=== PATIENT | male | born 1960 | race Caucasian/White ===

== ENCOUNTER 2021-03-29 01:56 | Outpatient (CLI) | payer BC, SELFPAY ==
--- NOTE | 2021-03-29 06:30 | DI.MRI_ITS ---
Exam(s) MR CERVICAL SPINE WO EXAM: MR CERVICAL SPINE WO CLINICAL HISTORY: Chronic pain,cervical dystonia, g24.3 TECHNIQUE: Multiplanar multisequence MRI of the cervical spine was performed without intravenous con trast. COMPARISON: No exams were available for comparison FINDINGS: CERVICOMEDULLARY JUNCTION: Intact with no evidence of cerebellar tonsillar ectopia. No obvious abnor mality of the odontoid process. No evidence of Chiari 1 malformation. The cervical curvature is cristhian ntained. CERVICAL SPINAL CORD: There is no abnormal signal in the cervical spinal cord and no evidence of foca l cord atrophy nor focal cord swelling. OSSEOUS:There are no cervical fractures evident. No significant osseous lesions in the cervical vert ebrae. INDIVIDUAL LEVELS: C2-3: No disc herniation nor central canal stenosis. No foraminal stenosis. No facet arthropathy. C3-4: No disc herniation nor central canal stenosis.No facet arthropathy. No foraminal stenosis. C4-5: No disc herniation nor central canal stenosis.No facet arthropathy. No foraminal stenosis C5-6: Normal disc height and signal. No disc herniation or central canal stenosis. No significant f acet arthropathy. No foraminal stenosis. C6-7: Normal disc height and signal. No disc herniation or central canal stenosis. No significant f acet arthropathy. No foraminal stenosis. C7-T1: No disc herniation nor central canal stenosis. No facet arthropathy.No foraminal stenosis. IMPRESSION: 1. Unremarkable MRI scan of the cervical spine 2. No evidence of disc herniation, central canal stenosis, or foraminal stenosis. 3. No abnormal intraosseous signal. 4. The normal cervical curvature is maintained. DATA REPOSITORY:
== END 2021-03-29 02:16 ==
PROVIDERS: PCP Nurse Practitioner Family; Visit Provider Nurse Practitioner Family
DX: G24.3 Spasmodic torticollis (principal)
CPT/HCPCS: 72141

== ENCOUNTER 2021-03-31 01:39 | Outpatient (CLI) | payer BC, SELFPAY ==
[2021-03-31 12:52] LABS: ALT 46 U/L (16-63); AST 21 U/L (15-37); Albumin 3.8 g/dL (3.4-5.0); Alkaline Phosphatase 74 U/L (46-116); Anion Gap 8.4 mmol/L (3-11); BUN 17 mg/dL (7-18); Bilirubin, Total 0.5 mg/dL (0.2-1.0); CO2 29.6 mmol/L (21.0-32.0); Calcium 8.9 mg/dL (8.5-10.1); Calculated LDL 159 mg/dL (<100); Chloride 105 mmol/L (98-107); Cholesterol 231 mg/dL (<200); Glucose 96 mg/dL (74-106); HDL Cholesterol 51 mg/dL (40-60); Potassium 4.7 mmol/L (3.5-5.1); Sodium 143 mmol/L (136-145); Total Protein 7.1 g/dL (6.4-8.2); Triglyceride 108 mg/dL (<150)
[2021-03-31 13:25] LABS: Hemoglobin A1C 5.3 % (<5.7)
== END 2021-03-31 01:40 | disposition home or self-care (01) ==
LOC: LOS 01:39
PROVIDERS: PCP Nurse Practitioner Family; Visit Provider Nurse Practitioner Family
DX: Z13.220 Encounter for screening for lipoid disorders (principal); Z13.1 Encounter for screening for diabetes mellitus; Z00.00 Encounter for general adult medical examination without abnormal findings
CPT/HCPCS: 36415; 80053; 80061; 83036

== ENCOUNTER 2021-08-11 08:15 | Outpatient (CLI) | payer BC, SELFPAY ==
--- NOTE | 2021-08-11 | DI.US_ITS ---
Exam(s) US PAIN CLINIC NEEDLE GUIDANCE EXAM: LT OCCIPITAL NEURALGIA,CERVICAL MUSCLE PAIN,SCAPULOTHORACIC BURSITIS,M54.81 COMPARISON: No exams were available for comparison TECHNIQUE: Ultrasound performed using standard protocol. FINDINGS: Ultrasound guidance was provided for trigger point injection. Radiologist not present. IMPRESSION: DATA REPOSITORY:
[2021-08-11 08:23] VITALS: BP 134/82; PULSE 64; RESP 18; TEMP 36.4; O2SAT 99
--- NOTE | 2021-08-11 09:10 | PDOC.PAIN_ITS ---
Pain Clinic Procedure Note Procedure Note Procedure Note: ULTRASOUND GUIDED left levator scapula and trapezius muscle trigger point INJECTIONS Pre-Procedural Evaluation: Humza Morse has been referred to the [facility] for an Ultrasound Guided left levator scapulae and trapezius muscle trigger point injection for a chief complaint of left neck pain. Dx: Muscle pain Pre-procedure Pain Score: 6/10 Patient was interviewed and the medical record reviewed. There were no medical, pharmacologic, radiographic, or other structural contraindications to preforming an ultrasound guided injection. Risks and expected side effects as well as potential benefits of the procedure were reviewed. The patient consent form was signed and witnessed. Standard time-out procedure was performed. The use of direct ultrasound visualization of the needle (rather than a non- guided injection) was required to increase patient safety by excluding inadvertent intramuscular, intratendinous, or intraneural needle placement and minimizing bleeding by avoiding osteochondral or vascular injury from the needle. Additionally, the increased accuracy of placement may increase clinical effectiveness and will allow higher diagnostic specificity when evaluating effec tiveness of this injection. Procedure Description: The patient was placed in the prone position and automated blood pressure cuff and pulse oximeter applied for monitoring during the procedure and recorded in the medical record. Pre-injection ultrasound scanning of the area of interest was performed using a linear transducer, identifying relevant anatomy, landmarks, and neurovascular structures allowing for optimal needle path. The site was then prepared in the usual sterile fashion, using thorough Chlorhexadine preparation of the skin and sterile draping. The same ultrasound transducer was then passed into the sterile field using sterile probe cover and sterile ultrasound gel. The injection target was again visualized. Skin and subcutaneous tissues were anesthetized with 3 mL of 1% Lidocaine. A 21 guage Pajunk Ultrasound needle 3.5 inch needle was placed under live ultrasound guidance, using an [id number] approach, to the target area. After visualization of the needle tip at the target area, 3 cc of Lidocaine (2%) was injected into the area. This was followed by 1cc of Dexamethasone (10 mg/cc). The needle was then flushed with 1 cc of 2% Lidocaine. All injectate was delivered after negative aspiration for blood. Numerous passes were made through the muscles. Ultrasound images were captured and stored for documentation purposes. Post-procedure VAS Pain Score: 5/10 Vital signs were stable throughout the procedure and were as recorded in the docflowsheet by the nursing staff. Follow up plans and appointments were discussed with the patient.Post procedure instruction was given as documented in nursing documentation and having met discharge criteria, they were discharged from the Pain Management Center. COMMENTS: He can have this procedure up to 3 times per 12 months if it is helpful. Lobo Bryant DO, MPH [facility]-Pain Management [facility]-Center for Pain Management
[2021-08-11 09:17] VITALS: PULSE 68; O2SAT 99
[2021-08-11] MEDS: Lidocaine 2% Pres-Free 5 ML VIAL IJ (09:21)
[2021-08-11] MEDS: Dexamethasone Sod. Phos./Pres-Free 10 MG/ML VIAL IJ (09:21)
== END 2021-08-11 08:16 | disposition home or self-care (01) ==
LOC: PC 08:15
PROVIDERS: PCP Nurse Practitioner Family; Visit Provider Preventive Medicine Occupational Medicine
DX: M54.2 Cervicalgia (principal)
CPT/HCPCS: 20552; 76942

== ENCOUNTER → 2021-10-06 13:54 | Outpatient (CLI) | payer BC, SELFPAY ==
--- NOTE | 2021-10-06 12:15 | DI.RAD_ITS ---
Exam(s) XR LUMBAR SPINE COMP W FLEX/EX EXAM: XR LUMBAR SPINE COMP W FLEX/EX CLINICAL HISTORY: M54.50 - [facility] low back pain - neurologically intact. TECHNIQUE: 2D digital imaging was performed. Seven views. COMPARISON: No exams were available for comparison FINDINGS: Flexion and extension lateral views were performed in addition to the neutral lateral view. There is no subluxation with flexion or extension. The vertebral bodies are well maintained in height. There are small endplate osteophytes throughout. Limbus vertebra is noted at L4. There is mild narr owing of the L4-5 and L5-S1 disc spaces. No spondylolysis, spondylolisthesis or scoliosis. Facet de generative changes at L4-5 and L5-S1. IMPRESSION: Degenerative disc changes and facet degenerative changes greatest at L4-5 and L5-S1. DATA REPOSITORY: RADIATION DOSE DELIVERED:
== END ==
PROVIDERS: PCP Nurse Practitioner Family; Visit Provider Preventive Medicine Occupational Medicine
DX: M54.59 Other low back pain (principal); M51.37 Other intervertebral disc degeneration, lumbosacral region; M47.817 Spondylosis without myelopathy or radiculopathy, lumbosacral region
CPT/HCPCS: 72114

== ENCOUNTER 2022-01-26 12:29 | Outpatient (CLI) | payer BC, SELFPAY ==
--- NOTE | 2022-01-26 06:00 | DI.RAD_ITS ---
Exam(s) XR PAIN CLINIC LUMBAR SP 2V EXAM: XR PAIN CLINIC LUMBAR SP 2V CLINICAL HISTORY: Dx: Lumbar Spondylosis TECHNIQUE: 2D and realtime digital imaging was performed. Radiologist not present. CONTRAST MATERIAL: None. COMPARISON: No exams were available for comparison FINDINGS: Fluoroscopy was provided for pain management therapy. Please refer to procedure report or details. Cumulative dose: Ka,r=not given mGy IMPRESSION: RADIATION DOSE DELIVERED:
[2022-01-26 12:39] VITALS: BP 133/90; PULSE 68; RESP 20; TEMP 36.4; O2SAT 97
--- NOTE | 2022-01-26 13:10 | PDOC.PAIN_ITS ---
Pain Clinic Procedure Note Procedure Note Procedure Note: Lumbar/Sacral Medial Branch Blocks Humza Morse has been referred to the Pain Management Center for lumbar/sacral medial branch blocks. COMMENTS: Previously evaluated in our office. Pre-procedure pain VAS was 6/10. Dx: Lumbosacral spondylosis without myelopathy Patient was interviewed and the medical record reviewed. There were no medical, pharmacologic, radiographic or other structural contraindications to attempting fluoroscopically guided local anesthetic lumbar/sacral medial branch blocks. Risks and expected side effects as well as potential benefit of the procedure were reviewed and voiced concerns addressed. The printed consent form was signed and witnessed. Standard time-out procedure was performed. Patient was placed in the prone position on the fluoroscopy table and automated blood pressure cuff and pulse oximeter applied. The skin entry points for approaching the anatomic target points of the segmental medial branches of bilateral L3, L4, and L5DR were identified with anfluoroscopy and marked. Following thorough Chlorhexadine preparation of the skin and draping and 1% lidocaine infiltration of the skin entry points and subcutaneous tissues, a 22 gauge spinal needle was placed under fluoroscopic guidance down on to the target point for each respective segmental medial branch.Position was confirmed in A/P, oblique and lateral views with 0.25ml of omnipaque 240. At this point I injected 0.5ml of 0.5% Bupivacaine at each segmental sensory nerve. Vital signs were stable throughout the procedure and were as recorded in the docflowsheet by the nursing staff. Follow up plans and appointments were discussed and was instructed to keep careful note of how the usual pain was modified by these injections. Specifically was asked to keep a pain diary for the next 24 hours using a numeric pain scale of 0-10 and report these results at the follow-up visit. Post procedure instruction was given as documented in the nursing documentation and having met discharge criteria. Patient was discharged from the Pain Management Center. Based on the medial branches blocked today, if the patient has adequate relief and we are able to proceed to radiofrequency ablation, the treatment should result in the denervation of the bilateral L4-L5 and L5-S1 FACET JOINTS. We would expect to denervate a total of 4 facets during the radiofrequency a blation. COMMENTS: Post-procedure pain VAS was 4/10. Lobo Bryant DO, MPH [facility]-Pain Management [facility]-Center for Pain Management CC: Ric Gordon NP
[2022-01-26 13:38] VITALS: BP 154/91; PULSE 82; RESP 19; O2SAT 100
[2022-01-26] MEDS: Omnipaque 240 MG/ML 50 ML BTL IJ (13:40)
[2022-01-26] MEDS: Bupivacaine 0.5% Pres-Free 10 ML VIAL IJ (13:40)
== END 2022-01-26 12:30 | disposition home or self-care (01) ==
LOC: PC 12:29
PROVIDERS: PCP Nurse Practitioner Family; Visit Provider Preventive Medicine Occupational Medicine
DX: M47.817 Spondylosis without myelopathy or radiculopathy, lumbosacral region (principal)
CPT/HCPCS: 64493; 64494; 72100; Q9967

== ENCOUNTER 2022-04-20 15:38 | Outpatient (CLI) | payer BC, SELFPAY ==
--- NOTE | 2022-04-20 15:30 | RT.EKG_ITS ---
APPROVED REPORT Exam: Resting ECG Reason for Exam: lightheaded, dizziness Patient Location: O HR:69 bpm ECG Measurements Heart Rate 69 AXIS MD 166 P 58 QRSd 89 QRS 73 QT 375 T 47 QTc 402 Conclusion Sinus rhythm...normal P axis, V-rate 50- 99 Poor R wave progression
== END 2022-04-20 15:39 | disposition home or self-care (01) ==
LOC: DI.CM 15:39
PROVIDERS: PCP Nurse Practitioner Family; Visit Provider Physician Assistant
DX: R42 Dizziness and giddiness (principal)
CPT/HCPCS: 93010

== ENCOUNTER 2022-04-20 16:09 | Emergency (ER) | payer BC, SELFPAY ==
[2022-04-20] VITALS (48 sets, daily range): BP systolic 120–163; BP diastolic 62–88; PULSE 52–85; RESP 6–25; TEMP 36.4; O2SAT 96–100
--- NOTE | 2022-04-20 16:15 | RT.EKG_ITS ---
APPROVED REPORT Exam: Resting ECG Reason for Exam: dizzy Patient Location: E HR:66 bpm ECG Measurements Heart Rate 66 AXIS WA 168 P 61 QRSd 82 QRS 57 QT 375 T 40 QTc 394 Conclusion Sinus rhythm. Probable left atrial enlargement. Anteroseptal Q >30mS, dimin R, V1-V2
--- NOTE | 2022-04-20 16:30 | DI.RAD_ITS ---
Exam(s) XR CHEST 2V PA LATERAL EXAM: XR CHEST 2V PA LATERAL CLINICAL HISTORY: lightheaded TECHNIQUE: 2D digital imaging was performed. COMPARISON: No exams were available for comparison FINDINGS: The heart is not enlarged. The lungs are clear and well expanded. No pleural effusion seen. Mediastin al contours appear intact. IMPRESSION: Normal chest. RADIATION DOSE DELIVERED: Total DLP
--- NOTE | 2022-04-20 16:35 | ED.GENADUL_ITS ---
Discharge Plan Disposition Patient Disposition: Home Condition: Improving Discharge Details Clinical Impression: Acute dehydration Primary Care Provider: Ric Gordon ED Provider: Jimenez Brown Home Meds and New Rx's Prescriptions: Continued omega-3 fatty acids [Fish Oil Concentrate] 1,000 mg capsule 1,000 mg PO DAILY multivitamin [Daily Multi-Vitamin] Tablet 1 tab PO DAILY Discharge Instructions Instructions: Dehydration (ED) Additional Instructions: Your work-up in the emergency department today included chest x-ray, EKG, laboratories including cardiac troponin. Please consider reducing your morning use of caffeinated tea. Small, frequent sips of fluids to maintain hydration. Follow-up in clinic for routine care. Discharge Data Discharge Date/Time-TO BE ENTERED AT DEPARTURE: 04/20/22 20:39 Medical Decision Making 62-year-old male with 4 days of lightheadedness that is primarily positional. Denies a vertiginous component. He has not had syncope. He denies chest pain or shortness of breath. He was initially seen at urgent care and referred to the ER. His review of systems will reveal a new daily drinking of caffeinated tea in the morning and decreased water intake. Says has had mild weakness but is otherwise felt well. Patient is well-appearing. His orthostatic vital signs are positive with an approximately 20 point rise in heart rate. IV access established, patient given fluid bolus. Labs reveal a normal CBC, chemistries with BUN elevated at 21. Creatinine as 1.2. Troponin negative, TSH within normal limits. Chest x-ray is unremarkable. Following fluid resuscitation, patient is improved. Does appear to be lifestyle related dehydration. Discussed with him ongoing surveillance for recurrence of symptoms at home. He is stable and improved at this time. Sign Out No HPI General Mode of arrival: ambulatory . Date/Time Provider Initiated Documentation: 04/20/22 16:12 . Limitations to Documentation: no limitations . Information obtained by: patient . History of Present Illness 62 year old M presents to the emergency department with the chief complaint of Lightheaded for 4 days, positional, described as moderate, and is localized to the head. Patient reports no radiation. Patient started experiencing this day(s) and it has been intermittent. Rest improves symptom(s), Other factors that worsen symptoms (Movement provoked at times) . Patient notes loss of appetite and malaise; denies fever/chills, headaches and syncope. Patient did receive the following treatments prior to arrival, none Related Data Home Medications Medication Instructions Recorded Confirmed multivitamin (Daily Multi-Vitamin 1 tab PO DAILY 02/26/21 04/20/22 tablet) omega-3 fatty acids 1,000 mg 1,000 mg PO DAILY 02/26/21 04/20/22 capsule (Fish Oil Concentrate) Allergies Allergy/AdvReac Type Severity Reaction Status Date / Time No Known Allergies Allergy Verified 04/20/22 14:54 General Stated Complaint: Dizzy/Sync ABIGAIL: 3 Review of Systems Narrative: No fever, chills, palpitations. Denies chest pain or shortness of breath. No lower extremity pain or swelling, no recent travel or known sick contacts. Denies dark or bloody stools. 8 systems were reviewed and otherwise negative PFSH All Active Problems (Updated 04/20/22 @ 18:58 by Jimenez Brown MD) Acute dehydration (Acute) Muscle pain, cervical (Acute) Low back pain (Acute) Scapulothoracic bursitis of left shoulder (Acute) Dr. Bryant at pain medicine Muscle pain, cervical (Acute) Occipital neuralgia of left side (Acute) Cervical dystonia (Acute) Elevated blood pressure reading (Acute) Degenerative disk disease (Acute) Lumbar region Medical History Postsurgical retinal scar of both eyes Surgical History History of lumbar laminectomy Hx of tonsillectomy S/P cataract surgery S/P MCL repair Family History Mother , 87 Breast cancer Liver cancer Father Throat cancer Diabetes Heart disease Sister No problems noted. Sister No problems noted. Sister No problems noted. Brother No problems noted. Maternal Grandfather , 92 No problems noted. Maternal Grandmother , 92 No problems noted. Social History Smoking/Tobacco Use Status: Never Second Hand Exposure: Yes Smoking risk assessment performed?: Yes Alcohol Intake: current Alcohol Intake frequency: a few times a week Alcohol type: beer and wine Drug use: Rarely Substance use type: marijuana Caregiver/Support person: No Household members: spouse Housing: house Communication Needs: None Do you need help understanding health information?: Rarely Pets and animals: No Sexually active: No Do you think of yourself as: straight/heterosexual Current gender identity: male What is your relationship status?: How often do you talk on the phone with friends or family?: twice per week How often do you get together with friends or relatives?: three or more times per week How often do you attend buddhist or mormon services?: decline to answer Panel score (0-1 are the most socially isolated patients): 2 What type of physical activity do you participate in: walking and bicycling Duration: 60-90 minutes/day Frequency: 1-2 times per week Melanie/Sabianist: No preference Special melanie needs: No Seatbelt use: always Drive intox or ride w/intox roll off driver: No Do you feel safe at home: Yes Do you feel safe in your relationship?: Yes Exam Narrative Exam Narrative: GEN: awake, alert, oriented 3. Pleasant, well groomed, interactive. HEAD: Normocephalic, atraumatic ENT: Mucous membranes moist, oropharynx unremarkable, External ear exam unremarkable EYES: PERRL, EOMI NECK: Full ROM, no JORDANA, no menigismus CHEST/RESP: Nontender, clear to auscultation bilateral, no wheeze/rhonchi/rales CARDIOVASCULAR: RRR, no murmur, rub oly. 2+ Rad pulse bilateral ABDOMEN: Soft, nontender, no mass. +Bowel sounds EXT: Full ROM, no edema, no rash Neuro: Cranial nerves II through XII intact, Romberg negative, grossly normal neurologic exam, conversant, interactive. Psych: Speech fluent, thoughts congruent, affect normal Course Vital Signs Vital signs: Vital Signs Temperature 36.4 C L 04/20/22 16:15 Pulse 68 04/20/22 16:15 Blood Pressure 151/84 H 04/20/22 16:15 Pulse Oximetry 98 04/20/22 16:15 Temperature 36.4 C L 04/20/22 16:15 Pulse 68 04/20/22 16:15 Blood Pressure 151/84 H 04/20/22 16:15 Pulse Oximetry 98 04/20/22 16:15 Oxygen Delivery Method Room Air 04/20/22 16:15 Oxygen Flow Rate 0 04/20/22 16:15 Pain Level 0 04/20/22 16:15
[2022-04-20 16:58] LABS: Abs Immature Grans 0.01 10^3/uL (0.0-0.06); Absolute Basophil Count 0.02 10^3/uL (0.0-0.2); Absolute Eosinophil Count 0.08 10^3/uL (0.0-0.7); Absolute Lymphocyte Count 1.63 10^3/uL (1.2-3.4); Absolute Monocyte Count 0.69 10^3/uL (0.1-0.8); Absolute Neutrophil Count 3.84 10^3/uL (1.2-6.7); Basophils % 0.3; Eosinophils % 1.3; HCT 49.3 % (40.0-50.0); HGB 16.6 g/dL (13.5-17.5); Immature Grans % 0.2; MCH 29.7 pg (27.0-33.0); MCHC 33.7 % (32.0-36.0); MCV 88 fL (80-95); Neutrophils % 61.2; Platelet Count 230 10^3/uL (130-400); RBC 5.59 10^6/uL (4.36-5.78); RDW 11.7 % (11.8-14.1); RDW-SD 37.2 fL; WBC 6.27 10^3/uL (4.4-10.8)
--- NOTE | 2022-04-20 17:21 | DI.VRAD_ITS ---
PROCEDURE INFORMATION: Exam: XR Chest Exam date and time: 04/20/2022 5:01 PM Age: 62 years old Clinical indication: Other: Lightheaded TECHNIQUE: Imaging protocol: Radiologic exam of the chest. Views: 2 views. COMPARISON: CR XR LUMBAR SPINE COMP W FLEX/EX 10/06/2021 12:31 PM FINDINGS: Lungs: Unremarkable. No consolidation. Pleural spaces: Unremarkable. No pleural effusion. No pneumothorax. Heart/Mediastinum: Unremarkable. No cardiomegaly. Bones/joints: Degenerative change of the spine. IMPRESSION: No acute findings. Dictated and Authenticated by: Cristina Klein MD. Ordering:ROSALINDA Gaona MD
[2022-04-20 17:24] LABS: ALT 35 U/L (16-63); AST 17 U/L (15-37); Albumin 3.6 g/dL (3.4-5.0); Alkaline Phosphatase 75 U/L (46-116); Anion Gap 6.9 mmol/L (3-11); BUN 21 mg/dL (7-18); Bilirubin, Total 0.4 mg/dL (0.2-1.0); CO2 29.1 mmol/L (21.0-32.0); CREATININE 1.2 mg/dL (0.70-1.30); Calcium 8.7 mg/dL (8.5-10.1); Chloride 104 mmol/L (98-107); Glucose 92 mg/dL (74-106); Magnesium 2.3 mg/dL (1.8-2.4); Potassium 3.9 mmol/L (3.5-5.1); Sodium 140 mmol/L (136-145); TSH 2.08 uIU/mL (0.36-3.74); Total Protein 7.2 g/dL (6.4-8.2); Troponin I < 50 ng/L (<or=60)
[2022-04-20 18:10] LABS: Bilirubin Negative (Negative); Blood Negative (Negative); Clarity Clear (Clear); Glucose Negative (Negative); Ketones Negative (Negative); Leukocyte Esterase Negative (Negative); Nitrite Negative (Negative); Urobilinogen 0.2 EU/dL (Up TO 0.2)
[2022-04-20] MEDS: Normal Saline 1,000 ML 1000 ML IV (18:33)
== END 2022-04-20 20:39 | disposition home or self-care (01) ==
PROVIDERS: Emergency Provider Emergency Medicine; PCP Nurse Practitioner Family
DX: E86.0 Dehydration (principal); Z77.22 Contact with and (suspected) exposure to environmental tobacco smoke (acute) (chronic)
CPT/HCPCS: 36415; 80053; 93005; 96360; 96361; 99284; 71046; 81003; 83735; 84443; 84484; 85025; 93010; 99285

== ENCOUNTER → 2022-05-13 13:38 | Outpatient (CLI) | payer BC, SELFPAY ==
--- NOTE | 2022-05-13 11:12 | DI.US_ITS ---
APPROVED REPORT EXAM: Comprehensive 2D, Doppler, and color-flow Echocardiogram Patient Location: Out-Patient [facility] Operator: Lizbet Patel RDCS (AE) Indications: Probable left atrial enlargement, Cardiomegaly Other Information Study Quality: Adequate Conclusion Normal left ventricular wall thickness and chamber size. Estimated ejection fraction is 60%. Wall m otion is normal Normal right ventricular size and systolic function The atria are normal in size There is no structural or hemodynamically significant valvular disease Normal estimated right ventricular systolic pressure 27 mmHg Wall motion Left Ventricle The left ventricle is normal size. The left ventricular systolic function is normal. The left ventric ular ejection fraction is within the normal range. There is normal left ventricular wall thickness. T here is normal LV segmental wall motion. There is no ventricular septal defect visualized. LVEF is 60 %. Right Ventricle The right ventricle is normal size. The right ventricular systolic function is normal. The RVSP is 26 .9_ mmHg. Atria The left atrium size is normal. The right atrium size is normal. The interatrial septum is intact wit h no evidence for an atrial septal defect. Aortic Valve The aortic valve is normal in structure. Aortic valve is trileaflet. There is no aortic valvular sten osis. Trace to mild aortic regurgitation. Mitral Valve The mitral valve is normal in structure. No evidence of mitral valve stenosis. Trace mitral regurgita tion. Tricuspid Valve The tricuspid valve is normal in structure. There is no tricuspid valve stenosis. Trace to mild tricu spid regurgitation. Pulmonic Valve The pulmonary valve is normal in structure. There is no pulmonic valvular stenosis. Trace pulmonic re gurgitation. Great Vessels The aortic root is normal in size. The ascending aorta is normal in size. Aortic arch is normal in ca liber. IVC is normal in size and collapses >50% with inspiration. Pericardium There is no pericardial effusion. 2D Dimensions IVSD d PLAX 1.01 cm M: 0.6-1.2 LV Vol A2C d MOD 119.9 mL LVPW d PLAX 1.00 cm M: 0.6 - 1.2 LV Vol A4C d MOD 117.4 mL LVID d PLAX 4.72 cm M: 4.2 - 5.8 LA vol/ BSA A2C s A-L 22.6 mL/m2 LVDs 3.25 cm M: 2.5 - 4.0 LA vol/ BSA A4C s A-L 13.7 mL/m2 Ao Root d 3.30 cm M: 3.1 - 3.7 LA Vol/ BSA Biplane s A-L 18.1 mL/m2 RA Area A4C 12.52 cm2 LA Area A4C s MOD 12.86 cm2 RA Vol/ BSA A4C s A-L 14.6 mL/m2 LA Area A2C s MOD 16.95 cm2 Ao Asc Diam d 3.24 cm M: 2.6 - 3.4 LV EF A4C MOD 60.0 % LV EF Teichholz 58.0 % LV EF A2C MOD 60.5 % LVEF (Gutierrez's) 59.83 % M: 52 - 72 LV EF Biplane MOD 59.8 % LV Volume 88.77 mL M: 62 - 150 SV 72.73 mL LV Volume Index 40.90 mL/m2 M: 34 - 74 SV Index 33.50 mL/m2 LV Vol Biplane MOD 121.6 mL FS 30.50 % M-Mode TAPSE 2.70 cm (M/F) >1.7 LV Diastology MV E' medial 0.081 (>0.07 m/s) E/A Ratio 1.0 LV E/e MED 5.95 (<14) MV E Vmax 0.48 (0.4-1.3 m/s) MV E' lateral 0.084 (>0.1 m/s) MV A Vmax 0.50 (0.4-1.3 m/s) LV E/e LAT 5.70 (<14) MV E/A Ratio 0.92 MV E/E' medial 5.98 MV E/E' lateral 5.72 Aortic Valve LVOT Area 3.18 cm2 AoV Area Vmax 2.80 cm2 LVOT Vmax 0.96 m/s AoV Area/ BSA (Vmax) 1.29 cm2/m2 LVOT [place]. 0.63 m/s WOJCIECH [place]. 2.69 cm2 LVOT Peak Grad 3.7 mmHg WOJCIECH [place]. Index 1.24 cm2/m2 LVOT Mean Grad 1.9 mmHg LVOT VTI 0.197 m LVOT Diam s 2.00 cm AoV Vmax 1.08 m/s Velocity Ratio 0.89 AoV [place]. 0.74 m/s AoV Peak Grad 4.7 mmHg LVOT SV 62.43 mL AoV Mean Grad 2.5 mmHg AoV VTI 0.215 m AoV Area VTI 2.90 cm2 AoV Area/ BSA (VTI) 1.34 cm/m2 Mitral Valve MV DT 325 (160-240 msec) MV PHT 94 msec MV Area PHT 2.34 cm2 MV VTI 0.169 m MV Area VTI 3.70 (4.0-6.0 cm2) Pulmonary Valve PV Vmax 0.90 (0.5-1.5 m/s) RVOT Peak Gr. 1.76 mmHg PV Peak Grad 3.2 mmHg RVOT Mean Gr. 1.00 mmHg PV Mean Grad 2.1 mmHg RVOT VTI 0.152 m PV VTI 0.207 m RVOT Vmax 0.66 m/s Tricuspid Valve TR Peak Grad 23.9 mmHg TR Vmax 2.44 m/s RA Pressure 3.00 mmHg RVSP (TR) 26.9 mmHg
== END ==
PROVIDERS: PCP Nurse Practitioner Family; Visit Provider Nurse Practitioner Family
DX: I51.7 Cardiomegaly (principal)
CPT/HCPCS: 93306

== ENCOUNTER 2022-08-02 02:40 | Outpatient (CLI) | payer BC, SELFPAY ==
--- NOTE | 2022-08-02 07:00 | DI.RAD_ITS ---
Exam(s) XR SCAPULA LT EXAM: XR SCAPULA LT CLINICAL HISTORY: continued/worsening pain SCAPULOTHORACIC BURSITIS LT SHOULDER,M75.52. TECHNIQUE: 2D digital imaging was performed. COMPARISON: No exams were available for comparison FINDINGS: Two views: No evidence of scapular fracture. No osseous lesions noted. No obvious findings in the glenohumeral joint and subacromial space nor in the AC joint and ipsilateral left clavicle. No abnormal soft tis jose r calcifications. IMPRESSION: No significant osseous findings on these two views of the scapula. DATA REPOSITORY: RADIATION DOSE DELIVERED:
== END 2022-08-02 03:00 ==
LOC: DI 02:43
PROVIDERS: PCP Nurse Practitioner Family; Visit Provider Nurse Practitioner Family
DX: M75.52 Bursitis of left shoulder (principal); M25.512 Pain in left shoulder
CPT/HCPCS: 73010

== ENCOUNTER 2022-10-05 01:15 | Outpatient (CLI) | payer BC, SELFPAY ==
--- NOTE | 2022-10-05 06:30 | DI.MRI_ITS ---
Exam(s) MR UPPER JOINT LT WO EXAM: MR UPPER JOINT LT WO CLINICAL HISTORY: Failing PT,bursitis lt shoulder,neck pain,m54.2,m75.52. TECHNIQUE: Multiplanar multisequence MRI was performed. COMPARISON: Plain films August 18 FINDINGS: BONES: There is no fracture or contusion pattern. JOINTS:The acromioclavicular joint is normal. The glenohumeral joint is normal. TENDONS: Supraspinatus: Unremarkable. Infraspinatus: Unremarkable. Subscapularis: Mild thickening and edema. No focal tear visible. Teres Minor: Unremarkable. Biceps and Pope: Unremarkable. MUSCLES: Unremarkable. GLENOID LABRUM: Labrum not evaluated due to lack of intra-articular contrast and lack of joint effusi on. There is a question of tear versus degenerative change involving the infero posterior labrum. T here is a small adjacent labral cyst. Additional tiny cysts seen adjacent to the anteroinferior la ngoc. SOFT TISSUES: Unremarkable. OTHER: Subacromial and subdeltoid bursae shows minimal fluid which could indicate bursitis. . IMPRESSION: Small amount of fluid in the subacromial subdeltoid bursa could indicate bursitis. Subscapularis tendinosis. Small labral cysts seen adjacent to the the anterior and posterior aspects of the inferior labrum. F indings could be associated with degeneration versus tear. DATA REPOSITORY:
--- NOTE | 2022-10-05 08:15 | DI.MRI_ITS ---
Exam(s) MR LUMBAR SPINE WO EXAM: MR LUMBAR SPINE WO CLINICAL HISTORY: Worsening low back pain, M54.50. TECHNIQUE: Multiplanar multisequence MRI of the Lumbar spine was performed. COMPARISON: CR XR LUMBAR SPINE COMP W FLEX/EX from 10/06/2021 CR XR SCAPULA LT from 08/02/2022 FINDINGS: Bones: The last intervertebral disc space is designated the L5/S1 level for the numbering purpose of this examination. The vertebral body heights are well maintained. Alignment is satisfactory. Degen erative signal changes in the endplates at the L2-3 level. Small endplate osteophytes throughout. Cord: The conus tip ends at the T12 level. It is of normal size and signal intensity. T12-L1: No disc herniations or bulges are present. No central spinal canal or neural foraminal stenos is. L1-2: No disc herniations or bulges are present. Facet degenerative changes and ligamentous hypertrop hy contribute to mild narrowing of the AP dimension of the central canal. L2-3: Mild loss of disc hei ght. No disc herniations or bulges are present. No central spinal canal or neural foraminal stenosis . L3-4: Laminectomy defect on the right. No disc herniations or bulges are present. No central spinal canal or neural foraminal stenosis. L4-5: Laminectomy defect on the right. Tiny disc protrusion at the right lateral recess. Appears to impinge on nerve roots. No central spinal canal or neural foraminal stenosis. L5-S1: No disc herniations or bulges are present. No central spinal canal or neural foraminal stenosi s. The visualized SI joints and sacrum are well maintained. Soft tissues: The paraspinal soft tissues are unremarkable. IMPRESSION: Tiny right-sided disc protrusion at L4-5 with apparent nerve root impingement. Slight central canal stenosis at 1-2. DATA REPOSITORY:
== END 2022-10-05 01:35 ==
PROVIDERS: PCP Nurse Practitioner Family; Visit Provider Nurse Practitioner Family
DX: M48.04 Spinal stenosis, thoracic region (principal); M75.52 Bursitis of left shoulder; M54.2 Cervicalgia
CPT/HCPCS: 72148; 73221

== ENCOUNTER → 2023-04-07 03:06 | Outpatient (CLI) | payer BC, SELFPAY ==
--- NOTE | 2023-04-07 07:30 | DI.MRI_ITS ---
Exam(s) MR UPPER EXTREMITY LT WO CLINICAL HISTORY: nontraumatic left shoulder pain,scapulothoracic bursitis, m75.52. TECHNIQUE: Multiplanar multisequence MRI Examination was performed. CONTRAST MATERIAL: Noncontrast COMPARISON: MRI shoulder 05 Oct 2022 FINDINGS: Bones: There is edema seen on the axial and sagittal sequences adjacent to the 1st and 2nd ribs. There also appears to be edema within the 1st rib. No focal collection. The thoracic spine appears normal as visualized. The cord signal appears normal. None no abnormal fluid collections are identified adjac ent to the scapula. Cyst adjacent to the posterior labrum. There is a small amount of fluid in the subcoracoid bursa. IMPRESSION: No evidence of scapulothoracic bursitis. Edema seen in and adjacent to left 1st rib. DATA REPOSITORY:
== END ==
PROVIDERS: PCP Nurse Practitioner Family; Visit Provider Student in an Organized Health Care Education/Training Program
DX: M75.52 Bursitis of left shoulder (principal); M25.512 Pain in left shoulder
CPT/HCPCS: 73218

== ENCOUNTER 2023-10-09 04:56 | Outpatient (CLI) | payer BC, SELFPAY ==
[2023-10-09 12:21] LABS: HCT 50.2 % (40.0-50.0); HGB 16.5 g/dL (13.5-17.5); MCH 29.7 pg (27.0-33.0); MCHC 32.9 % (32.0-36.0); MCV 91 fL (80-95); MPV 10.5 fL (8.0-11.0); Platelet Count 229 10^3/uL (130-400); RBC 5.55 10^6/uL (4.36-5.78); RDW 11.9 % (11.8-14.1); RDW-SD 39.5 fL; WBC 3.84 10^3/uL (4.4-10.8)
[2023-10-09 12:53] LABS: ALT 37 U/L (16-63); AST 20 U/L (15-37); Albumin 3.8 g/dL (3.4-5.0); Alkaline Phosphatase 71 U/L (46-116); Anion Gap 6.7 mmol/L (3-11); BUN 17 mg/dL (7-18); Bilirubin, Total 0.8 mg/dL (0.2-1.0); CO2 29.3 mmol/L (21.0-32.0); CREATININE 1.1 mg/dL (0.70-1.30); Calcium 8.9 mg/dL (8.5-10.1); Calculated LDL 131 mg/dL (<100); Chloride 106 mmol/L (98-107); Cholesterol 199 mg/dL (<200); Glucose 102 mg/dL (74-106); HDL Cholesterol 53 mg/dL (40-60); Hemoglobin A1C 5.5 % (<5.7); Potassium 4.5 mmol/L (3.5-5.1); Sodium 142 mmol/L (136-145); Total Protein 7.2 g/dL (6.4-8.2); Triglyceride 78 mg/dL (<150)
[2023-10-09 18:34] LABS: PSA, Screening 5.7 ng/mL (<=4.5)
== END 2023-10-09 04:57 | disposition home or self-care (01) ==
LOC: LOS 04:56
PROVIDERS: PCP Nurse Practitioner Family; Visit Provider Nurse Practitioner Family
DX: Z00.00 Encounter for general adult medical examination without abnormal findings (principal); Z13.228 Encounter for screening for other metabolic disorders; Z13.220 Encounter for screening for lipoid disorders; Z13.1 Encounter for screening for diabetes mellitus; Z12.5 Encounter for screening for malignant neoplasm of prostate; Z13.0 Encounter for screening for diseases of the blood and blood-forming organs and certain disorders involving the immune mechanism
CPT/HCPCS: 36415; 80053; 80061; 84153; 85027; 83036

== ENCOUNTER 2024-01-19 08:11 | Day surgery (SDC) | payer BC, SELFPAY ==
--- NOTE | 2024-01-18 22:58 | COLE_ITS ---
Date of service: 01/19/24 Time of Service: 10:04 Colonoscopy Report Date of procedure: 01/19/24 Pre-op diagnosis general: CRC screening Post-op diagnosis procedure note: same Surgeon: Nishi Gallardo Anesthesia Type: General:No Airway Estimated blood loss (mL): 0 Complications: None Disposition: same day Prep: Miralax/Dulcolax Retraction Time: 8 Procedure Description: After informed consent was obtained, explaining risks of the procedure, includ ing but not limits to: bleeding, infections, complications of anesthesia, perforations (which may require antibiotics and /or surgery and stay in the hospital), and abdominal pain/cramping. The patient was taken to the procedure room and placed in a left decubitous position. Monitors were applied and a time out was done. The patients name, date of , procedure, allergies to medications and metal in their body was reviewed. The patient was then sedated. Once sedated and comfortable a rectal exam was done. External exam was normal. Internal exam revealed a normal sphincter tone and no palpable masses. The prostate no palpable masses The previously lubricated Olympus scope was then introduced (see RN notes for scope number) and retrofelexed. internal hemorrhoidal tags were identified. The scope was then advanced to the cecum without difficulty. The TI and appendiceal orifice were identified. The scope was then slowly retracted over 8 minutes back into the rectum. Polyps: No. Diverticula: No. The mucosa is pink and healthy w/ a normal vascular pattern. The scope was removed, and the patient was woken up and taken back to Same day surgery in stable condition. The patient tolerated the procedure well and there were no immediate complications. Follow up: The patient should follow up in 10 years, unless they develop changes in bowel habits or other new gastrointestinal complaints. [place] Bowel Prep [place] Bowel Prep Right Colon: 3 Left Colon: 3 Transverse Colon: 3 Total Score: 9
--- NOTE | 2024-01-18 22:59 | PDOC.DSDIS_ITS ---
Date of service: 01/19/24 Time of Service: 10:06 Discharge Plan Disposition Patient Disposition: Home Condition: Good Discharge Details Reason For Visit: colon scope Attending Provider: Nishi Gallardo Primary Care Provider: Ric Gordon Home Meds and New Rx's Prescriptions: Continued omega-3 fatty acids [Fish Oil Concentrate] 1,000 mg capsule 1,000 mg PO DAILY multivitamin [Daily Multi-Vitamin] Tablet 1 tab PO DAILY Discontinued bisacodyl [Dulcolax (bisacodyl)] 5 mg tablet,delayed release (DR/EC) 5 mg PO ONCE Qty: 4 0RF Rx Instructions: Take per colonoscopy instructions provided by ordering providers office polyethylene glycol 3350 17 gram/dose powder 17 g PO ONCE Qty: 238 0RF Rx Instructions: Take per colonoscopy instructions provided by ordering providers office Discharge Instructions Additional Instructions: DSU Colonoscopy Post- Op Instructions Instructions for Everyone who is given Anesthesia: For your safety, please do the following for the next twenty-four (24) hours: *Do Not operate a motor vehicle (car, truck, motorcycle, etc.) *Do Not drink alcoholic beverages or use any recreational drugs for the first 24 hours or while taking pain medications. The medications in your body may have a reaction that can be dangerous. *Do Not make any important decisions or sign any important papers. Findings:normal Follow up: repeat in 10 yrs time 1. No lifting over 20 pounds or strenuous activity for the first 24 hours after your procedure. After 24 hours there are no restrictions on your activity but you may feel fatigued for a few days. 2. After you arrive home you may have a light meal and return to your normal diet as you can tolerate it without feeling sick to your stomach. 3. You may have a bloated, gaseous feeling in your belly (abdomen) after a colonoscopy. Passing gas and belching will help. Walking or lying down on your left side with your knees flexed may relieve the discomfort. Call the office at [phone] (Office) or [phone] (Hospital) right away if you notice any of the following: a.Vomiting of blood or ?coffee ground stools?. b.Rectal bleeding 1Tbsp, blood clots or continuous bleeding. c.Severe belly (abdominal) pain. d.A hard distended belly (abdomen) and an inability to pass gas. 4. Please don?t expect to have a normal BM (bowel movement) for 2-3 days after your procedure. 5. If there are questions regarding the findings of your procedure, please contact your doctor 6. If you are unable to contact your doctor with a problem, contact the hospital at [phone]. 7. Continue all your regular medications unless directed otherwise. I understand the above instructions and have no questions. Signature of Patient or Adult Escort Name of Responsible Adult Escort Signature of Nurse Date/Time Stand Alone Forms: Anesthesia Discharge Inst., Marvin Sawyer (DSU) Activity:: see above Diet:: see above Discharge Orders Discharge Orders: Discharge Order (Routine); Ordered 01/19/24 Ordered By: Nishi Gallardo DS: Diagnosis Discharge Diagnosis (1) Elevated blood pressure reading: Status: Acute (2) Degenerative disk disease: Status: Acute (3) Screening for malignant neoplasm of colon performed: Status: Acute Asessment and Plan: The patient is seen and examined after their colonoscopy.? The patient has been able to pass gas.? They are not having abdominal pain.? They have been able to tolerate liquids and a snack.? They do not have any nausea or vomiting.? They are not having any chest pain or shortness of breath.??? They are not having any rectal bleeding. Their vital signs have been stable-see nursing notes. We discussed findings during their colonoscopy, and any biopsies that were done/polyps that were removed. The patient will be sent a letter with any biopsy results, and when to repeat the colonoscopy.-see discharge instructions. Patient was given explicit instructions to follow-up regarding colonoscopy-refer to discharge instructions.? We reviewed resumption of medications. Patient verbalized understanding and discharged in stable and satisfactory condition- See nursing notes.
--- NOTE | 2024-01-19 05:59 | W.ANESPRE ---
General Info Date of Service Date Performed: 01/19/24 Height: 6 ft 3 in Weight: 89.358 kg Body Mass Index (BMI): 24.6 Surgical Procedure: Operation Date: 01/19/24 09:05 Proposed Procedure Side Surgeon kei Gallardo, DO Meds Allergies and Home Medications Allergies Allergy/AdvReac Type Severity Reaction Status Date / Time No Known Allergies Allergy Verified 01/19/24 08:33 Home Medication ?Medication ?Instructions ?Recorded multivitamin (Daily Multi-Vitamin 1 tab PO DAILY 02/26/21 tablet) omega-3 fatty acids 1,000 mg 1,000 mg PO DAILY 02/26/21 capsule (Fish Oil Concentrate) Current Visit Medications: Current Medications Generic Name Dose Route Start Last Admin Trade Name Freq PRN Reason Stop Dose Admin Hyoscyamine Sulfate 0.125 mg 01/19/24 11:01 Hyoscyamine 0.125 Mg Sl/Oral/Chew SL 02/18/24 11:00 DIRECTED PRN Ringer's Solution 1,000 mls @ 80 mls/hr 01/19/24 06:00 IV 01/19/24 23:59 INFUSION [facility] IV Miscellaneous Supplies 1 each 01/19/24 06:00 Iv Access IV 01/19/24 23:59 DIRECTED ALAN Ondansetron HCl 4 mg 01/19/24 11:01 Ondansetron 4 Mg/2 Ml Vial IVP 02/18/24 11:00 Q4H PRN PRN Nausea / Vomiting Sodium Chloride 0 ml 01/19/24 06:00 Normal Saline Flush 10 Ml Syr IV 01/19/24 23:59 PRN PRN Sodium Chloride 0 ml 01/19/24 06:00 Normal Saline 10 Ml Vial IJ 01/19/24 23:59 DIRECTED PRN Sterile Water 0 ml 01/19/24 06:00 Water,Injection,Sterile 10 Ml Vial IJ 01/19/24 23:59 DIRECTED PRN PFSH Active Problems Active Problems: Problem Status Onset Code Elevated PSA, less than 10 ng/ml Acute R97.20 Trapezius muscle spasm Acute M62.838 Low back pain Acute M54.50 Scapulothoracic bursitis of left shoulder Acute M75.52 Muscle pain, cervical Acute M54.2 Occipital neuralgia of left side Acute M54.81 Cervical dystonia Acute G24.3 Elevated blood pressure reading Acute R03.0 Degenerative disk disease Acute Medical History Medical History Postsurgical retinal scar of both eyes Surgical History Surgical History Hx of colonoscopy Hx of tonsillectomy S/P cataract surgery S/P MCL repair History of lumbar laminectomy Tobacco Smoking/Tobacco Use Status: Never Passive smoking exposure: No Second hand exposure: Yes Alcohol Alcohol Intake: current Alcohol intake frequency: a few times a week Alcohol type: beer and wine Substance Use Substance use: Daily Substance use type: marijuana Vital Signs and Lab Results Lab Results Blood Type / Crossmatch: No Data to Display Complete Blood Count: No Data to Display Complete Metabolic Panel: No Data to Display Liver Function Panel: No Data to Display Coagulation Panel: No Data to Display Cardiac Panel: No Data to Display Arterial Blood Gas: No Data to Display Venous Blood Gas: No Data to Display Pancreas Panel: No Data to Display Thyroid Panel: No Data to Display Infectious Disease: No Data to Display Blood Cultures: No Data to Display Toxicology Panel: No Data to Display Imaging and Studies Imaging and Studies Study information below may be from another EMR and interpreted by another provider. Please see original notes in EMR for more complete details. EKG Summary: 04/20/22 Conclusion Sinus rhythm. Probable left atrial enlargement. Anteroseptal Q >30mS, dimin R, V1-V2 Echocardiogram Summary: 05/13/22 Conclusion Normal left ventricular wall thickness and chamber size. Estimated ejection fraction is 60%. Wall motion is normal Normal right ventricular size and systolic function The atria are normal in size There is no structural or hemodynamically significant valvular disease Normal estimated right ventricular systolic pressure 27 mmHg Anesthesia Assessment and Plan Anesthesia History Personal History: No History of Anesthesia Complications Family History: No Family History of Anesthesia Complications Exercise Tolerance Exercise Tolerance: Metabolic Equivalents>4 Pertinent Negatives Pertinent Negatives: No Symptoms of GERD, No Major Cardiovascular Symptoms or Complaints, No Major Pulmonary Symptoms or Complaints and No History of CVA/TIA Cardiac & Pulmonary Exam Cardiac Exam: Normal S1/S2 Heart Sounds Pulmonary Exam: Clear Bilateral Breath Sounds Implantable Cardiac Device Does patient have a Pacemaker or an ICD?: No Airway Exam Known Difficult Airway: No Mallampati Class: 2 Mouth Opening: Normal (> 3cm) Thyromental Distance: Greater than 3 cm Neck Range of Motion: Full ROM Neck Circumference: Normal Teeth Condition: Normal Dentition ASA Classification ASA Score: ASA 2 Emergency Case?: No NPO Status NPO Status: NPO Clears >2 hours, Solids >8 hours Anesthesia Plan Resuscitation Status: Full Code Anesthesia Technique: General Anesthesia Airway Planned: Natural Airway Monitors Used: Standard Monitors Preoperative Comments:: 63 y/o male with history of elevated BP and daily marijuana use for back pain, presents for colonoscopy screening. He describes his last Colonoscopy was 10 years ago in the state of [place].
[2024-01-19 08:35] VITALS: BP 122/83; PULSE 72; RESP 16; TEMP 36.5; O2SAT 98
[2024-01-19] MEDS: Lactated Ringers 1,000 ML 80 ML IV (08:45)
[2024-01-19 09:04] VITALS: BMI 24.6
[2024-01-19 09:54] VITALS: BP 132/97; PULSE 72; RESP 16; TEMP 35.9; O2SAT 98
--- NOTE | 2024-01-19 10:07 | W.ANESPOSTOP ---
Postoperative Evaluation Date, Time and Location Date Performed: 01/19/24 Time Performed: 10:08 Patient Location: Day Surgery Unit Vital Signs Most Recent Imported Vital Signs: Most Recent Vital Signs Temp Pulse Resp BP Pulse Ox 35.9 C L 72 16 132/97 H 98 01/19/24 09:54 01/19/24 09:54 01/19/24 09:54 01/19/24 09:54 01/19/24 09:54 Pain Score Most Recent Pain Score: Most Recent Pain Score Pain Level 0 01/19/24 09:54 Assessment Mental Status: Awake (Alert & Oriented to Patient Baseline) Airway and Respiratory Function: Patent airway with normal (patient baseline) respiratory exam Cardiovascular Function: Hemodynamically Stable Hydration Status: Adequately Hydrated Nausea & Vomiting: No Nausea or Vomiting Pain: Pt. Denies Any Pain Peripheral Nerve Block: Patient did not receive a nerve block
[2024-01-19 10:33] VITALS: BP 141/88; PULSE 61; RESP 16; TEMP 36.5; O2SAT 99
== END 2024-01-19 11:04 | disposition home or self-care (01) ==
LOC: SUR 08:11
PROVIDERS: PCP Nurse Practitioner Family; Visit Provider Surgery
PROC: 0DJD8ZZ Inspection of Lower Intestinal Tract, Via Natural or Artificial Opening Endoscopic (ICD-10-PCS; CPT 45378; principal; 2024-01-19 09:00)
DX: R03.0 Elevated blood-pressure reading, without diagnosis of hypertension (principal); Z12.11 Encounter for screening for malignant neoplasm of colon
CPT/HCPCS: 45378; J2001; J2704

== ENCOUNTER 2024-02-04 13:26 | Emergency (ER) | payer BC, SELFPAY ==
[2024-02-04] VITALS (48 sets, daily range): BP systolic 140–229; BP diastolic 62–106; PULSE 70–105; RESP 11–40; TEMP 36.6–36.8; O2SAT 98–99
--- NOTE | 2024-02-04 13:00 | DI.RAD_ITS ---
Exam(s) XR PORTABLE CHEST AP EXAM: XR PORTABLE CHEST AP CLINICAL HISTORY: ams, anaphylaxis? TECHNIQUE: 2D digital imaging was performed of the chest. Two images were obtained. AP views were obtained. COMPARISON: CR,XR XR CHEST 2V PA LATERAL from 04/20/2022 FINDINGS: MEDIASTINUM: Normal. HEART: Normal. PULMONARY VASCULATURE: Normal. LUNGS: Clear. PLEURAL SPACE: No pleural effusion or pneumothorax. BONE:Within normal limits for the patient's age. OTHER FINDINGS:Normal. IMPRESSION: No acute pulmonary findings. DATA REPOSITORY: RADIATION DOSE DELIVERED:
--- NOTE | 2024-02-04 13:00 | RT.EKG_ITS ---
APPROVED REPORT Exam: Resting ECG Reason for Exam: [facility] Patient Location: E HR:92 bpm ECG Measurements Heart Rate 92 AXIS IA 177 P 64 QRSd 87 QRS 64 QT 368 T 54 QTc 454 Conclusion Sinus rhythm...normal P axis, V-rate 60- 99 Probable left atrial enlargement...P >50mS, <-0.10mV V1 Consider anteroseptal infarct...Q >30mS, dimin R, V1-V2 sinus rhythm, normal axis, poor baseline due to motion
[2024-02-04] MEDS: methylPREDNISolone SUCC 125 MG VIAL (13:19)
[2024-02-04] MEDS: FAMOTIDINE 20 MG/50 ML BAG 200 MG (13:19)
[2024-02-04] MEDS: diphenhydrAMINE 50 MG/ML VIAL (13:19)
[2024-02-04 13:20] LABS: Abs Immature Grans 0.02 10^3/uL (0.0-0.06); Absolute Basophil Count 0.02 10^3/uL (0.0-0.2); Absolute Eosinophil Count 0.11 10^3/uL (0.0-0.7); Absolute Lymphocyte Count 2.28 10^3/uL (1.2-3.4); Absolute Monocyte Count 0.73 10^3/uL (0.1-0.8); Basophils % 0.3 %; Eosinophils % 1.7 %; HCT 48.1 % (40.0-50.0); HGB 16.3 g/dL (13.5-17.5); Immature Grans % 0.3 %; Lymphocytes % 35.8 %; MCH 29.7 pg (27.0-33.0); MCHC 33.9 % (32.0-36.0); MCV 88 fL (80-95); MPV 9.4 fL (8.0-11.0); Monocytes % 11.5 %; Neutrophils % 50.4 %; Platelet Count 236 10^3/uL (130-400); RBC 5.49 10^6/uL (4.36-5.78); RDW 11.7 % (11.8-14.1); RDW-SD 37.6 fL; WBC 6.36 10^3/uL (4.4-10.8)
[2024-02-04] MEDS: Normal Saline 1,000 ML 1000 ML IV (13:20)
[2024-02-04 13:21] LABS: BE (Venous) -1 mmol/L (-2-3); HCO3 (Venous) 24 mmol/L (23-28); O2 Sat (Venous) 90 %; TCO2 (Venous) 21 mmol/L (24-29); pCO2 (Venous) 43 mmHg (41-51); pH (Venous) 7.36 (7.31-7.41); pO2 (Venous) 56 mmHg
[2024-02-04 13:33] LABS: Salicylate < 2.8 mg/dL (<2.8)
[2024-02-04 13:41] LABS: INR 1.1 (0.9-1.1); PTT Activated 22.3 sec (23.6-32.8); Prothrombin Time 10.8 sec (9.1-11.1)
[2024-02-04 13:42] LABS: Acetaminophen < 2 ug/mL (10-30)
--- NOTE | 2024-02-04 13:47 | W.ED.GENAD ---
Discharge Plan Disposition Patient Disposition: Home Condition: Improving Discharge Details Chief Complaint: Allergic Clinical Impression: Anaphylaxis Primary Care Provider: Ric Gordon ED Provider: Kit Belle Home Meds and New Rx's Prescriptions: No Action omega-3 fatty acids [Fish Oil Concentrate] 1,000 mg capsule 1,000 mg PO DAILY multivitamin [Daily Multi-Vitamin] Tablet 1 tab PO DAILY Discharge Instructions Instructions: Anaphylaxis Additional Instructions: Please return to the emergency department for any worsening symptoms. Follow-up close with your primary care physician. HPI General Date/Time Provider Initiated Documentation: 02/04/24 13:47. HPI Narrative: 64-year-old male brought in by EMS for unresponsiveness after being stung by a bee, was stung on his left wrist/forearm, patient became unresponsive upon EMS arrival was given epinephrine x 2 IM IV access was obtained, blood sugar normal in the field pupils were noted to be anisocoric, patient unresponsive on arrival tremulous, en route. Related Data Home Medications ?Medication ?Instructions ?Recorded ?Confirmed multivitamin (Daily Multi-Vitamin 1 tab PO DAILY 02/26/21 02/04/24 tablet) omega-3 fatty acids 1,000 mg 1,000 mg PO DAILY 02/26/21 02/04/24 capsule (Fish Oil Concentrate) Allergies Allergy/AdvReac Type Severity Reaction Status Date / Time bee venom protein (honey bee) Allergy Severe Anaphylaxis Verified 02/04/24 13:24 General Stated Complaint: Allergic ABIGAIL: 1 Exam Narrative Exam Narrative: Largely unresponsive on arrival however intermittently following basic commands Speaking in quiet voice although tolerate secretions no stridor No oropharyngeal swelling Lungs clear bilaterally, tachypneic no wheezing rales or rhonchi Heart sounds normal no murmurs rubs or gallops Abdomen soft nontender nondistended Patient displaying diffuse muscle fasciculation without definitive tonic-clonic motion Intermittently responding to questions with 1 or 2 word verbal responses, intermittently responding to commands by squeezing hands and opening eyes No appreciable rash No vomiting or diarrhea No external signs of trauma Course Vital Signs Vital signs: Vital Signs Respiratory Rate 27 H 02/04/24 13:03 Temperature 36.6 C 02/04/24 13:10 Temperature Source Axillary 02/04/24 13:10 Pulse 90 02/04/24 13:11 Pulse 89 02/04/24 13:11 Respiratory Rate 25 H 02/04/24 13:11 Respiratory Effort Normal, Non-Labored 02/04/24 13:14 Blood Pressure 140/77 02/04/24 13:11 Blood Pressure Mean 93 02/04/24 13:11 Blood Pressure Position Supine 02/04/24 13:10 Pulse Oximetry 99 02/04/24 13:10 Respiratory End-tidal CO2 28 02/04/24 13:11 Oxygen Delivery Method Room Air 02/04/24 13:10 Oxygen Flow Rate 0 02/04/24 13:10 End Tidal Co2 33 02/04/24 13:10 Pain Level 0 02/04/24 13:10 Lab/Test Results Lab/Test Results: Laboratory Tests Range/Units 02/04/24 13:04 WBC (4.4-10.8) 10^3/uL 6.36 RBC (4.36-5.78) 10^6/uL 5.49 Hgb (13.5-17.5) g/dL 16.3 Hct (40.0-50.0) % 48.1 MCV (80-95) fL 88 MCH (27.0-33.0) pg 29.7 MCHC (32.0-36.0) % 33.9 RDW (11.8-14.1) % 11.7 L Plt Count (130-400) 10^3/uL 236 MPV (8.0-11.0) fL 9.4 Immature Gran % % 0.3 Neutrophils % % 50.4 Lymphocytes % % 35.8 Monocytes % % 11.5 Eosinophils % % 1.7 Basophils % % 0.3 Nucleated RBC % (0.0-0.3) % 0.0 Absolute Neutrophils (1.2-6.7) 10^3/uL 3.20 Absolute Lymphocytes (1.2-3.4) 10^3/uL 2.28 Absolute Monocytes (0.1-0.8) 10^3/uL 0.73 Absolute Eosinophils (0.0-0.7) 10^3/uL 0.11 Absolute Basophils (0.0-0.2) 10^3/uL 0.02 PT (9.1-11.1) sec 10.8 INR (0.9-1.1) 1.1 APTT (23.6-32.8) sec 22.3 L VBG pH (7.31-7.41) 7.36 VBG pCO2 (41-51) mmHg 43 VBG pO2 mmHg 56 VBG HCO3 (23-28) mmol/L 24 VBG Total CO2 (24-29) mmol/L 21 L VBG O2 Saturation % 90 VBG Base Excess (-2-3) mmol/L -1 Salicylates (<2.8) mg/dL < 2.8 Acetaminophen (10-30) ug/mL < 2 Medical Decision Making 64-year-old male brought in by EMS after going unresponsive after being stung by a bee, patient received 2 times epinephrine IM, IV was placed in the field, fingerstick normal per EMS, patient was largely unresponsive on arrival however intermittently opening eyes to command and squeezing my hand to command, patient tongue secretions voice normal without stridor no wheezing rales or rhonchi appreciated no retractions no cyanosis, no rash appreciated, patient did have diffuse fasciculation of muscles consistent with multiple doses of IM epinephrine no tonic-clonic motion no urinary or stool incontinence, no vomiting or diarrhea, abdomen soft nontender nondistended, attaining oxygen saturation in the mid 90s on room air end-tidal CO2 applied within normal range, blood sugar repeated here in department within normal range, EKG obtained nonischemic no arrhythmia, patient was administered Solu-Medrol and Benadryl famotidine IV as well as crystalloid fluid, patient has become greatly more responsive opening eyes spontaneously alert to self and situation normal speech nonfocal. Consider transient hypotension in the setting of anaphylaxis lower suspicion for seizure intracranial hemorrhage cardiac arrhythmia PE or aortic pathology. Lower suspicion for infectious process such as pneumonia or UTI bacteremia or intra-abdominal infection. Low suspicion for toxicologic process given history and physical. Patient does have anisocoria however he does have a history of cataract surgery. Given the nature of his history and presentation will obtain CT head portable chest x-ray labs including toxicologic labs troponin BNP urinalysis close reassessment of mental status and respiratory status. 15: 17 greatly improved symptomatology alert oriented back to baseline neurologically intact following commands hemodynamically stable. Patient endorses remembering being stung by bee and then not remembering anything beyond giving his his passcode to his phone. Patient endorses an immediate allergic reaction to a recent bee sting before today in which his arm began to swell and his skin became itchy. Per patient quickly became altered after the bee sting she pulled over and sought help at the [place] police station. Labs imaging largely unremarkable. Will continue to observe patient. No evidence of recrudescence of symptoms. Patient be discharged home with epinephrine pens. 16: 36 patient resting comfortably hemodynamically stable. No respiratory symptoms no rash no shortness of breath no altered mental status. Patient given 2 EpiPen's and given instruction on how to use them. Home care instructions and strict return precautions given. coming to pick him up. Quality:SDOH Health Related Social Needs: No Data to Display PFSH All Active Problems (Updated 02/04/24 @ 16:41 by Kit Belle MD) Anaphylaxis (Acute) Screening for malignant neoplasm of colon performed (Acute) Elevated PSA, less than 10 ng/ml (Acute) Trapezius muscle spasm (Acute) Low back pain (Acute) Scapulothoracic bursitis of left shoulder (Acute) Dr. Bryant at pain medicine Muscle pain, cervical (Acute) Occipital neuralgia of left side (Acute) Cervical dystonia (Acute) Elevated blood pressure reading (Acute) Degenerative disk disease (Acute) Lumbar region Medical History (Updated 02/04/24 @ 16:41 by Kit Belle MD) Postsurgical retinal scar of both eyes Surgical History (Updated 01/22/24 @ 08:33 by Tamika Mota) Hx of colonoscopy (~12/2023) Hx of tonsillectomy S/P cataract surgery S/P MCL repair History of lumbar laminectomy Family History Mother , 87 Breast cancer Liver cancer Father Throat cancer Diabetes Heart disease Sister No problems noted. Sister No problems noted. Sister No problems noted. Brother No problems noted. Maternal Grandfather , 92 No problems noted. Maternal Grandmother , 92 No problems noted. Social History (Updated 01/05/24 @ 10:43 by GISSELLE Rebolledo) Smoking/Tobacco Use Status: Never Second Hand Exposure: Yes Smoking risk assessment performed?: Yes Alcohol Intake: current Alcohol Intake frequency: a few times a week Alcohol type: beer and wine Drug use: Daily Substance use type: marijuana Details: alcohol: t-2. Marijuana: t-3, hit Caregiver/Support person: No Household members: spouse Housing: house Communication Needs: None Do you need help understanding health information?: Rarely Pets and animals: No Sexually active: No Do you think of yourself as: straight/heterosexual Current gender identity: male What is your relationship status?: How often do you talk on the phone with friends or family?: twice per week How often do you get together with friends or relatives?: three or more times per week How often do you attend gnosticism or episcopalian services?: decline to answer Panel score (0-1 are the most socially isolated patients): 2 What type of physical activity do you participate in: walking and bicycling Duration: 60-90 minutes/day Frequency: 1-2 times per week Melanie/Yazdanism: No preference Special melanie needs: No Seatbelt use: always Drive intox or ride w/intox van driver helper: No Do you feel safe at home: Yes Do you feel safe in your relationship?: Yes
[2024-02-04 13:48] LABS: ALT 41 U/L (16-63); AST 26 U/L (15-37); Albumin 3.4 g/dL (3.4-5.0); Alkaline Phosphatase 78 U/L (46-116); Anion Gap 8.2 mmol/L (3-11); BUN 13 mg/dL (7-18); CO2 24.8 mmol/L (21.0-32.0); CREATININE 1.2 mg/dL (0.70-1.30); Chloride 103 mmol/L (98-107); Creatine Kinase 126 U/L (39-308); Estimated GFR 67.95 (mL/min/1.73m2); Glucose 163 mg/dL (74-106); Lipase 41 U/L (16-77); NT-proBNP 22 pg/mL (<300); Potassium 3.2 mmol/L (3.5-5.1); Sodium 136 mmol/L (136-145); Total Protein 6.8 g/dL (6.4-8.2)
[2024-02-04 13:51] LABS: TSH (W/Ref FT4) 5.14 uIU/mL (0.36-3.74); Troponin I 5 ng/L (4-76)
[2024-02-04 13:52] LABS: Calcium 8.6 mg/dL (8.5-10.1); ETHANOL BLOOD < 3.0 mg/dL (<10)
[2024-02-04 14:08] LABS: FREE T4 1.07 ng/dL (0.76-1.46)
[2024-02-04 14:27] LABS: Troponin I 11 ng/L (4-76)
--- NOTE | 2024-02-04 14:52 | DI.CT_ITS ---
Exam(s) CT HEAD WO EXAM: CT HEAD WO CLINICAL HISTORY: ams htn. TECHNIQUE: Imaging Protocol: Axial computed tomography images with coronal and sagittal reformatted images were created and reviewed COMPARISON: No exams were available for comparison FINDINGS: Ventricles and Extra axial spaces: Normal in size and morphology for the patient's age. Hemorrhage: None. Cerebral parenchyma: No acute territorial infarct. There is no mass effect. Midline shift: None. Brainstem/Cerebellum: Normal. Calvarium: Normal. Visualized Paranasal sinuses/Mastoids: There are mucous retention cysts or polyps in the sphenoid sin uses. Soft Tissues: Unremarkable. IMPRESSION: No acute intracranial process. RADIATION DOSE DELIVERED: 1,006.98mGy.cm Total DLP DATA REPOSITORY: All CT scans at this facility are submitted to the National Radiology Data Registry (NRDR) Dose Index Registry (DIR) with the [employer] (ACR). RADIATION OPTIMIZATION: All CT scans at this facility use at least one of these dose optimization te chniques: automated exposure control; mA and/or kV adjustment per patient size (includes targeted exa ms where dose is matched to clinical indication); or iterative reconstruction.
[2024-02-04 14:54] LABS: Bilirubin Negative (Negative); Blood Negative (Negative); Clarity Clear (Clear); Glucose Negative (Negative); Ketones Negative (Negative); Leukocyte Esterase Negative (Negative); Nitrite Negative (Negative); Urobilinogen 0.2 mg/dL (Up to 0.2); pH 5.5 (5-8)
[2024-02-04 15:02] LABS: *BENZODIAZEPINES SCREEN URINE Negative (Negative)
[2024-02-04 15:03] LABS: *AMPHETAMINES SCREEN URINE Negative (Negative); *BARBITURATES SCREEN URINE Negative (Negative); Cannabinoids THC Negative (Negative); Cocaine Screen,Urine Negative (Negative); OPIATES URINE SCREEN Negative (Negative); Tricyclic Antidepressants Negative (Negative)
== END 2024-02-04 17:10 | disposition home or self-care (01) ==
PROVIDERS: Emergency Provider Emergency Medicine; PCP Nurse Practitioner Family
DX: T63.441A Toxic effect of venom of bees, accidental (unintentional), initial encounter (principal); T78.2XXA Anaphylactic shock, unspecified, initial encounter; X58.XXXA Exposure to other specified factors, initial encounter
CPT/HCPCS: 36415; 80053; 80307; 82550; 82805; 83690; 93005; 96360; 99285; 70450; 71045; 80320; 80329; 81003; 83735; 83880; 84439; 84443; 84484; 85025; 85610; 85730; 93010; 99284; J1200; J2919

== ENCOUNTER 2024-05-21 03:42 | Outpatient (CLI) | payer BC, SELFPAY ==
[2024-05-21 20:35] LABS: PSA, Screening 6.6 ng/mL (<=4.5)
== END 2024-05-21 03:43 | disposition home or self-care (01) ==
LOC: LBO 03:42
PROVIDERS: PCP Nurse Practitioner Family; Visit Provider Nurse Practitioner Family
DX: R97.20 Elevated prostate specific antigen [PSA] (principal)
CPT/HCPCS: 36415; 84153

== ENCOUNTER 2024-07-11 14:46 | Outpatient (REF) | payer BC, SELFPAY ==
--- NOTE | 2024-07-11 14:30 | PROST_PTH ---
PATIENT: Humza Morse LOC: [facility] U#:[id number] AGE/SX: 64/M ROOM: RE07/11/[address]: Yazan Fabian MD : 1960 BED: DIS: 07/11/2024 SPEC #: [id number] RECD: 07/11/24 17:21 STATUS: GERBER RE #: [id number] MCKAYLA: 07/11/24 14:[address]: Yazan Fabian DEPT: Surgical Specimen RECD BY: Shireen Thompson ENTERED: 07/11/24 17:23 SP TYPE: PROST OTHR DR: Ric Gordon, PRESIDENT [employer] Tissues: 1 - PROSTATE NEEDLE BIOPSY 2 - PROSTATE NEEDLE BIOPSY 3 - PROSTATE NEEDLE BIOPSY 4 - PROSTATE NEEDLE BIOPSY 5 - PROSTATE NEEDLE BIOPSY 6 - PROSTATE NEEDLE BIOPSY 7 - PROSTATE NEEDLE BIOPSY 8 - PROSTATE NEEDLE BIOPSY 9 - PROSTATE NEEDLE BIOPSY 10 - PROSTATE NEEDLE BIOPSY 11 - PROSTATE NEEDLE BIOPSY 12 - PROSTATE NEEDLE BIOPSY Procedures: GROSS AND MICRO LEVEL 4 Comments: [id number]
== END 2024-07-11 14:47 | disposition home or self-care (01) ==
LOC: LBN 14:46
PROVIDERS: PCP Nurse Practitioner Family; Visit Provider Urology
DX: C61 Malignant neoplasm of prostate (principal)
CPT/HCPCS: 88305

== ENCOUNTER 2024-10-04 01:19 | Outpatient (CLI) | payer BC, SELFPAY ==
[2024-10-04 09:47] LABS: Hemoglobin A1C 5.4 % (<5.7)
[2024-10-04 10:29] LABS: ALT 38 U/L (16-63); AST 19 U/L (15-37); Albumin 3.8 g/dL (3.4-5.0); Alkaline Phosphatase 82 U/L (46-116); Anion Gap 5.5 mmol/L (3-11); BUN 10 mg/dL (7-18); Bilirubin, Total 0.9 mg/dL (0.2-1.0); CO2 28.5 mmol/L (21.0-32.0); CREATININE 0.9 mg/dL (0.70-1.30); Calcium 8.9 mg/dL (8.5-10.1); Calculated LDL 149 mg/dL (<100); Chloride 102 mmol/L (98-107); Cholesterol 210 mg/dL (<200); Estimated GFR 95.97 (mL/min/1.73m2); Glucose 108 mg/dL (74-106); HDL Cholesterol 42 mg/dL (>or=40); Potassium 4.6 mmol/L (3.5-5.1); Sodium 136 mmol/L (136-145); TSH (W/Ref FT4) 2.37 uIU/mL (0.36-3.74); Total Protein 7.4 g/dL (6.4-8.2); Triglyceride 98 mg/dL (<150)
== END 2024-10-04 01:20 | disposition home or self-care (01) ==
PROVIDERS: PCP Nurse Practitioner Family; Visit Provider Urology
DX: Z13.220 Encounter for screening for lipoid disorders (principal); R03.0 Elevated blood-pressure reading, without diagnosis of hypertension; Z13.1 Encounter for screening for diabetes mellitus; R79.89 Other specified abnormal findings of blood chemistry; R39.9 Unspecified symptoms and signs involving the genitourinary system; C61 Malignant neoplasm of prostate
CPT/HCPCS: 36415; 80053; 80061; 83036; 84443; 87086

== ENCOUNTER 2024-12-30 17:12 | Emergency (ER) | payer BC, SELFPAY ==
[2024-12-30] VITALS (33 sets, daily range): BP systolic 146–209; BP diastolic 78–99; PULSE 61–91; RESP 7–22; TEMP 36.9; O2SAT 95–100
--- NOTE | 2024-12-30 17:20 | ED.GENADUL_ITS ---
Discharge Plan Disposition Patient Disposition: Home Condition: Stable Discharge Details Clinical Impression: Allergic reaction to bee sting Primary Care Provider: Ric Gordon ED Provider: Mallika Narvaez Home Meds and New Rx's Prescriptions: New epinephrine [EpiPen 2-Arsen] 0.3 mg/0.3 mL auto-injector 0.3 mg IM Q5-15M PRNQty: 2 0RF Rx Instructions: do not exceed 3 doses per episode No Action multivitamin [Daily Multi-Vitamin] Tablet 1 tab PO DAILY omega-3 fatty acids [Fish Oil Concentrate] 1,000 mg capsule 2,000 mg PO DAILY epinephrine 0.3 mg/0.3 mL auto-injector 0.3 mg IM Q5-15M PRN (Reason: hypersensitivity reaction) Qty: 2 1RF Rx Instructions: do not exceed 3 doses per episode omeprazole 20 mg capsule,delayed release(DR/EC) 20 mg PO DAILY Qty: 90 0RF Discharge Instructions Instructions: Insect allergy Additional Instructions: I have sent a prescription for an EpiPen to your pharmacy. Have this with you at all times. If you do get stung again please self administer the epinephrine as you did today. Follow-up with your primary care doctor in the meantime and if you have any other concerns or any worsening symptoms please return to the emergency department for reevaluation. Discharge Data Discharge Date/Time-TO BE ENTERED AT DEPARTURE: 12/30/24 20:02 HPI General Date/Time Provider Initiated Documentation: 12/30/24 17:19 . 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 Reports that just prior to emergency room arrival he was stung by a bee on his right knee. Reports that he used a device to remove the parts on his knee and administered himself the epinephrine shot. Reports that he also took Benadryl and Pepcid and came to the emergency department. Reports he is not having any chest pain or shortness of breath. Denies any upper tongue swelling. Denies any abdominal pain, nausea or vomiting. Reports he was at his baseline health prior. Related Data Home Medications ?Medication ?Instructions ?Recorded ?Confirmed multivitamin (Daily Multi-Vitamin 1 tab PO DAILY 02/2612/30/24 tablet) epinephrine 0.3 mg/0.3 mL 0.3 mg (0.3 mL) IM Q5-15M RI N 02/08/24 12/30/24 injection, auto-injector hypersensitivity reaction #2 ea omega-3 fatty acids 1,000 mg 2,000 mg PO DAILY 5 12/30/24 capsule (Fish Oil Concentrate) omeprazole 20 mg capsule,delayed 20 mg PO DAILY #90 ca ps 12/16/24 12/30/24 release epinephrine 0.3 mg/0.3 mL 0.3 mg (0.3 mL) IM Q5-15M RI N #2 ea 12/30/24 injection, auto-injector (EpiPen 2-Arsen) Previous Rx's ?Medication ?Instructions ?Recorded epinephrine 0.3 mg/0.3 mL 0.3 mg (0.3 mL) IM Q5-15M RI N 02/08/24 injection, auto-injector hypersensitivity reaction #2 ea omeprazole 20 mg capsule,delayed 20 mg PO DAILY #90 ca ps 12/16/24 release epinephrine 0.3 mg/0.3 mL 0.3 mg (0.3 mL) IM Q5-15M RI N #2 ea 12/30/24 injection, auto-injector (EpiPen 2-Arsen) Allergies Allergy/AdvReac Type Severity Reaction Status Date / Time bee venom protein (honey bee) Allergy Severe Anaphylaxis Verified 10/16/24 12:55 General ABIGAIL: 1 Review of Systems Narrative: Review of systems are negative except as mentioned. Exam Narrative Exam Narrative: General appearance: The patient is alert, has no immediate need for airway protection and no signs of toxicity. HEENT: Oral mucosal membranes are moist. No tongue or lip swelling noted. Respiratory: There are no retractions. Lungs are clear to auscultation. Cardiovascular: Regular in rate and rhythm. Radial pulses are intact and equal. Gastrointestinal: The abdomen is soft and nondistended with normal bowel sounds. Nontender to palpation throughout. Neurological: The patient is alert, awake and oriented x 3. Skin: No retained parts of stinger noted on the patient's right knee. No overlying erythema or increased warmth to touch is noted to the right knee. Extremities: The patient has right knee tenderness palpation along where he r eports he was stung at. Medical Decision Making The patient does appear well overall and is essentially asymptomatic apart from discomfort from the bee sting on the right knee nevertheless due to history of anaphylaxis, established patient with epinephrine, Benadryl and Pepcid and told the patient with plan for IV steroid empiric observation. Patient agrees to this plan. After period of observation the patient had no recurrence of symptoms and remains hemodynamically stable therefore I told him of plan for discharge. I sent a prescription for more EpiPen to his preferred pharmacy. He is asked to follow-up with his primary care doctor in the meantime and urged to return to the emergency department with any worsening symptoms or any other concerns. [facility] All Active Problems (Updated 12/30/24 @ 19:48 by Mallika Narvaez DO) Allergic reaction to bee sting (Acute) Elevated TSH (Acute) Prostate cancer (Chronic) Urology [facility] and [facility] Screening for malignant neoplasm of colon performed (Acute) Trapezius muscle spasm (Acute) Low back pain (Acute) Scapulothoracic bursitis of left shoulder (Acute) Dr. Bryant at pain medicine Muscle pain, cervical (Acute) Occipital neuralgia of left side (Acute) Cervical dystonia (Acute) Elevated blood pressure reading (Acute) Degenerative disk disease (Acute) Lumbar region Medical History (Updated 12/30/24 @ 19:48 by Mallika Narvaez DO) Elevated PSA, less than 10 ng/ml Elevated PSA Postsurgical retinal scar of both eyes Surgical History Hx of colonoscopy (~12/2023) Hx of tonsillectomy S/P cataract surgery S/P MCL repair History of lumbar laminectomy Family History Mother , 87 Breast cancer Liver cancer Father Throat cancer Diabetes Heart disease Sister No problems noted. Sister No problems noted. Sister No problems noted. Brother No problems noted. Maternal Grandfather , 92 No problems noted. Maternal Grandmother , 92 No problems noted. Social History Smoking/Tobacco Use Status: Never Second Hand Exposure: Yes Smoking risk assessment performed?: Yes Alcohol Intake: current Alcohol Intake frequency: a few times a week Alcohol type: beer and wine Drug use: Daily Substance use type: marijuana Details: alcohol: t-2. Marijuana: t-3, hit Caregiver/Support person: No Household members: spouse Housing: house Communication Needs: None Do you need help understanding health information?: Rarely Pets and animals: No Sexually active: No Do you think of yourself as: straight/heterosexual Current gender identity: male What is your relationship status?: How often do you talk on the phone with friends or family?: twice per week How often do you get together with friends or relatives?: three or more times per week How often do you attend jehovah's witness or presybeterian services?: decline to answer Panel score (0-1 are the most socially isolated patients): 2 What type of physical activity do you participate in: walking and bicycling Duration: 60-90 minutes/day Frequency: 1-2 times per week Melanie/Episcopal: No preference Special melanie needs: No Seatbelt use: always Drive intox or ride w/intox tow truck driver: No Do you feel safe at home: Yes Do you feel safe in your relationship?: Yes
[2024-12-30] MEDS: methylPREDNISolone SUCC 125 MG VIAL IVP (17:31)
== END 2024-12-30 20:02 | disposition home or self-care (01) ==
PROVIDERS: Emergency Provider Emergency Medicine; PCP Nurse Practitioner Family
DX: T63.441A Toxic effect of venom of bees, accidental (unintentional), initial encounter; M25.561 Pain in right knee
CPT/HCPCS: 99283; 99284; 96374; J2919

== ENCOUNTER 2025-01-16 10:43 | Observation (INO) | payer BC, SELFPAY ==
[2025-01-16] VITALS (47 sets, daily range): BP systolic 110–186; BP diastolic 66–98; PULSE 57–82; RESP 8–28; TEMP 36.4–37.1; O2SAT 96–100
--- NOTE | 2025-01-16 10:30 | RT.EKG_ITS ---
APPROVED REPORT Exam: Resting ECG Reason for Exam: R-sided weakness Patient Location: E HR:66 bpm ECG Measurements Heart Rate 66 AXIS LA 181 P 49 QRSd 84 QRS 59 QT 398 T 39 QTc 418 Conclusion Sinus rhythm...normal P axis, V-rate 60- 99 Consider anteroseptal infarct...Q >30mS, dimin R, V1-V2 No Occlusion [place]
--- NOTE | 2025-01-16 10:31 | W.ED.GENAD ---
Discharge Plan Disposition Patient Disposition: Admit to [facility] Discharge Details Clinical Impression: Difficulty gripping, Transient right leg weakness, Extravasation of radio-opaque contrast media Primary Care Provider: Ric Gordon ED Provider: Pan Mcdowell Home Meds and New Rx's Prescriptions: No Action multivitamin [Daily Multi-Vitamin] Tablet 1 tab PO DAILY omega-3 fatty acids [Fish Oil Concentrate] 1,000 mg capsule 2,000 mg PO DAILY epinephrine 0.3 mg/0.3 mL auto-injector 0.3 mg IM Q5-15M PRN (Reason: hypersensitivity reaction) Qty: 2 1RF Rx Instructions: do not exceed 3 doses per episode omeprazole 20 mg capsule,delayed release(DR/EC) 20 mg PO DAILY Qty: 90 0RF epinephrine [EpiPen 2-Arsen] 0.3 mg/0.3 mL auto-injector 0.3 mg IM Q5-15M PRN (Reason: anaphylaxis) Qty: 2 0RF Rx Instructions: do not exceed 3 doses per episode HPI General Date/Time Provider Initiated Documentation: 01/16/25 10:50. HPI Narrative: MDM This is a quite well-appearing normothermic and not tachycardic 64-year-old male with mild right hand and right lower extremity weakness with recent history of reportedly more profound weakness concerning for the possibility of CVA versus TIA for which patient will undergo CT scan of his brain followed by CT angiogram of his head and neck. Based on the patient's improving symptoms I do not feel that he would be a candidate for lytics at this point in time. He is not altered to suggest acute intracranial hemorrhage. He is not having chest pain to suggest ACS however will obtain ECG and obtain troponins. In the absence of chest pain my suspicion for aortic dissection is low. Patient does have anisocoria raising the possibility for intracranial aneurysm. Will assess electrolytes maintain on cardiac telemetry and completed chest x-ray following neurology consultation. No nuchal rigidity to suggest meningitis so no indication for lumbar puncture. No tonic-clonic activity to suggest seizures I did not feel patient required an EEG. 11:33 AM Patient unfortunately had CT contrast media extravasation in his right upper extremity. I was planning on ordering hyaluronidase however patient had bee venom protein allergy causing anaphylaxis which reportedly has cross-reactivity with hyaluronidase reached out to pharmacy. I spoke with Shanae from pharmacy who reported that 1-1/2 to 2% of bee venom protein was comprised of hyaluronidase and as result we will defer this treatment. I did order a right humerus x-ray to assess the extent of contrast extravasation. Patient is currently seen by neurology. 12 PM I reassessed the patient. His right upper extremity had some swelling at the distal portion of his biceps. He had soft right upper extremity compartments. He is has a warm and well-perfused right hand. Full range of motion of his right elbow. Will continue to monitor. His right hand bronze plater strength was improved compared to prior. He had 5 out of 5 right lower extremity strength. His GCS remained 15. I spoke with Dr. Madera from tele neurology. He did not feel that patient was a lytic candidate. He advised hospitalization for TIA workup. If there is no LVO will obtain MRI brain. No LVO per radiology.CBC shows mild leukopenia similar to prior. No anemia. No thrombocytopenia. Reassuring initial troponin. Comprehensive metabolic panel with reassuring electrolytes and LFTs. No MELO. 3:15 PM MRI reassuring against any acute CVA. I met with the patient. He continued to feel improved. I was in touch with Dr. Solo. He graciously accepted the patient for hospitalization in the setting of concern for TIA. Patient will likely benefit from observational telemetry with or without the possibility of an updated echocardiogram. Chronic conditions affecting the care of the patient: Elevated TSH History obtained from an outside historian: Paramedics External record review: N/A Diagnostic interpretations performed by me: Per my independent interpretation chest x-ray shows: No acute cardiopulmonary process Per my independent interpretation EKG shows: No ischemic changes. ]Medications: Aspirin Social determinants of health affecting disposition: N/A Management discussed with: Neurology [facility] Treatment/interventions considered: N/A Response to therapies provided: N/A HPI The patient presents to the emergency room for right-sided weakness. He was in his usual state of health when he woke up at 6:30 AM but developed right-sided weakness an hour later at 7:30 AM. He has a weak right bronze plater and weak right leg strength in comparison to the left. His face is symmetrical, and his speech is clear. He reports no headache, chest pain, pressure or heaviness, new back pain, abdominal pain, or nausea. He denies hypertension diabetes hyperlipidemia. He denies routine tobacco use. Exam General: Well-appearing in no acute distress speaking in complete sentences. Head: Normocephalic, atraumatic. Eye: Extraocular eye movements intact. No conjunctival injection. No scleral icterus. Left sided pupil reactive 4 to 3 mm. Right-sided pupil reactive 3 to 2 mm. Ear, nose, mouth, throat: Grossly normal inspection. Normal voice, handling secretions normally. Neck: Trachea midline. Cardiovascular: Well-perfused distal extremities. Respiratory: Nonlabored respiration. Gastrointestinal: Nondistended abdomen. Musculoskeletal: No edema. Moving all 4 extremities spontaneously. Skin: Normal for age and race, grossly normal temperature and turgor. No acute rash. Neurologic: Alert and appropriate. Face symmetrical. Sensation intact bilaterally V1 through V3 distributions on face. Mild anisocoria. See eye exam above. Right upper extremity with mild decreased bronze plater strength compared to left upper extremity. Left lower extremity 5/5 strength. Right lower extremity with 5 out of 5 strength. Psychiatric: Mood and manner are appropriate. Grooming and personal hygiene are appropriate. Related Data Home Medications ?Medication ?Instructions ?Recorded ?Confirmed multivitamin (Daily Multi-Vitamin 1 tab PO DAILY 02/26/21 01/16/25 tablet) epinephrine 0.3 mg/0.3 mL 0.3 mg (0.3 mL) IM Q5-15M PRN 02/08/24 01/16/25 injection, auto-injector hypersensitivity reaction #2 ea omega-3 fatty acids 1,000 mg 2,000 mg PO DAILY 10/16/24 01/16/25 capsule (Fish Oil Concentrate) omeprazole 20 mg capsule,delayed 20 mg PO DAILY #90 caps 12/16/24 01/16/25 release epinephrine 0.3 mg/0.3 mL 0.3 mg (0.3 mL) IM Q5-15M PRN 01/07/25 01/16/25 injection, auto-injector (EpiPen anaphylaxis #2 ea 2-Arsen) Previous Rx's ?Medication ?Instructions ?Recorded epinephrine 0.3 mg/0.3 mL 0.3 mg (0.3 mL) IM Q5-15M PRN 02/08/24 injection, auto-injector hypersensitivity reaction #2 ea omeprazole 20 mg capsule,delayed 20 mg PO DAILY #90 caps 12/16/24 release epinephrine 0.3 mg/0.3 mL 0.3 mg (0.3 mL) IM Q5-15M PRN 01/07/25 injection, auto-injector (EpiPen anaphylaxis #2 ea 2-Arsen) Allergies Allergy/AdvReac Type Severity Reaction Status Date / Time bee venom protein (honey bee) Allergy Severe Anaphylaxis Verified 01/16/25 09:57 General ABIGAIL: 2 PFSH All Active Problems (Updated 01/16/25 @ 15:09 by Joseph Solo MD) TIA (transient ischemic attack) (Acute) Extravasation of radio-opaque contrast media (Acute) Transient right leg weakness (Acute) Difficulty gripping (Acute) Allergic reaction to bee sting (Acute) Elevated TSH (Acute) Prostate cancer (Chronic) Urology [facility] Screening for malignant neoplasm of colon performed (Acute) Trapezius muscle spasm (Acute) Low back pain (Acute) Scapulothoracic bursitis of left shoulder (Acute) Dr. Bryant at pain medicine Muscle pain, cervical (Acute) Occipital neuralgia of left side (Acute) Cervical dystonia (Acute) Elevated blood pressure reading (Acute) Degenerative disk disease (Acute) Lumbar region Medical History (Updated 01/16/25 @ 15:09 by Joseph Solo MD) Elevated PSA, less than 10 ng/ml Elevated PSA Postsurgical retinal scar of both eyes Surgical History Hx of colonoscopy (~12/2023) Hx of tonsillectomy S/P cataract surgery S/P MCL repair History of lumbar laminectomy Family History Mother , 87 Breast cancer Liver cancer Father Throat cancer Diabetes Heart disease Sister No problems noted. Sister No problems noted. Sister No problems noted. Brother No problems noted. Maternal Grandfather , 92 No problems noted. Maternal Grandmother , 92 No problems noted. Social History Smoking/Tobacco Use Status: Never Second Hand Exposure: Yes Smoking risk assessment performed?: Yes Alcohol Intake: current Alcohol Intake frequency: a few times a week Alcohol type: beer and wine Drug use: Daily Substance use type: marijuana Details: alcohol: t-2. Marijuana: t-3, hit Caregiver/Support person: No Household members: spouse Housing: house Communication Needs: None Do you need help understanding health information?: Rarely Pets and animals: No Sexually active: No Do you think of yourself as: straight/heterosexual Current gender identity: male What is your relationship status?: How often do you talk on the phone with friends or family?: twice per week How often do you get together with friends or relatives?: three or more times per week How often do you attend pentecostal or sabianist services?: decline to answer Panel score (0-1 are the most socially isolated patients): 2 What type of physical activity do you participate in: walking and bicycling Duration: 60-90 minutes/day Frequency: 1-2 times per week Melanie/Mu-Ism: No preference Special melanie needs: No Seatbelt use: always Drive intox or ride w/intox driver/refuse collector: No Do you feel safe at home: Yes Do you feel safe in your relationship?: Yes
[2025-01-16] MEDS: Normal Saline - Diluent 50 ML VIAL IJ ×2 (10:51→11:09)
[2025-01-16] MEDS: Omnipaque 350 MG/ML 100 ML BTL IJ ×2 (10:51→11:10)
[2025-01-16] MEDS: Normal Saline Flush 10 ML SYR IVP ×3 (10:52→20:07)
--- NOTE | 2025-01-16 11:15 | DI.CT_ITS ---
Exam(s) CT BRAIN NECK CTA EXAM: CT BRAIN NECK CTA CLINICAL HISTORY: Right-sided weakness. TECHNIQUE: Imaging Protocol: Axial CT angiography was performed with multi- slice acquisition and multi-planar and/or 3D reconstructions. CONTRAST MATERIAL: Intravenous: Omnipaque 350 Contrast volume:structured data in ml COMPARISON: CT CT HEAD WO from 02/04/2024 CR XR PORTABLE CHEST AP from 01/16/2025 FINDINGS: CTA Neck W: Aortic arch anatomy: The aortic arch anatomy is conventional and there is no significant stenosis at the origin of the great vessels off of the aortic arch. No intimal flap evident. Anterior circulation: Both common carotid arteries ascend with normal luminal diameters. There is both calcified and noncalcified plaque evident at the level the carotid bulbs and proximal ICAs bilaterally. No critical stenosis. The amount of stenosis at the carotid bulbs and proximal ICAs is estimated at approximately 30 percent bilaterally Above this level the internal carotid arteries are patent in the upper neck and skull base-carotid canals. Posterior circulation: Both vertebral arteries originate in conventional fashion off of the subclavian arteries and there is no obvious stenosis at the origin of the right vertebral artery. On the left side there is some calcified plaque in the left subclavian artery just proximal to the takeoff point of the vertebral artery. However, there does not appear to be a critical stenosis at the origin of the left vertebral artery. Both vertebral arteries exhibit normal luminal diameters within the foramen transversarium. Both vertebral arteries contribute to the formation of the basilar artery at the skull base. CTA Brain W: Anterior circulation: Both internal carotid arteries are patent in the skull base-carotid canals as well as within the cavernous sinuses. The supraclinoid aspects of the ICAs are patent. The left A1 segment is dominant. The right A1 segment is a tract. Both anterior cerebral arteries are patent. There is no aneurysm at the level the anterior communicating artery. Both middle cerebral arteries are patent with no evidence of significant stenosis nor intraluminal thrombus. There also no aneurysms of these vessels. Posterior circulation: Basilar artery ascends without significant stenosis. Distally it gives off superior cerebellar arteries. Above this level it terminates as patent left posterior cerebral artery. The right posterior cerebral artery is predominantly fed by posterior communicating artery on the right side of the aesdty-xf-[id number]. There is also a smaller posterior communicating artery evident on the left side of the upmbuv-wz-Vyprpy. There is no evidence of aneurysm at the tip of the basilar artery nor elsewhere in the tgdssg-xx-Hadmpk. CT BRAIN: There is no evidence of intracranial hemorrhage, mass effect, or shift of midline structures. There are no extra-axial fluid collections. Ventricles are not enlarged or shifted. There are no ring enhancing lesions in the brain and no abnormal meningeal enhancement. IMPRESSION: 1. There is partially calcified plaque at the level of both carotid bulbs and proximal ICAs. There is approximately 30-40 percent stenosis bilaterally. 2. Patent vertebral arteries. 3. Patent intracranial arteries. There are bilateral posterior communicating arteries noted on both sides of the cxqvrf-ro-Ethssg, as described above. 4. No intracranial aneurysms nor evidence of obvious vascular malformation. 5. If clinically indicated follow-up MRI can be performed Report called by myself to ER the physician 01/16/2025 at 12:06 noon RADIATION DOSE DELIVERED: 2,512.79mGy.cm Total DLP DATA REPOSITORY: All CT scans at this facility are submitted to the National Radiology Data Registry (NRDR) Dose Index Registry (DIR) with the [employer] (ACR). RADIATION OPTIMIZATION: All CT scans at this facility use at least one of these dose optimization techniques: automated exposure control; mA and/or kV adjustment per patient size (includes targeted exams where dose is matched to clinical indication); or iterative reconstruction.
--- NOTE | 2025-01-16 11:30 | DI.RAD_ITS ---
Exam(s) XR PORTABLE CHEST AP EXAM: XR PORTABLE CHEST AP CLINICAL HISTORY: Right upper extremity weakness. TECHNIQUE: 2D digital imaging was performed. COMPARISON: CR XR PORTABLE CHEST AP from 02/04/2024 FINDINGS: Single AP portable view. Heart size is upper normal. The mediastinum is not widened. Lungs are clear. No infiltrates nor obvious pleural effusions. IMPRESSION: No acute pulmonary findings on this single AP portable view of the chest. DATA REPOSITORY: RADIATION DOSE DELIVERED:
--- NOTE | 2025-01-16 11:30 | DI.RAD_ITS ---
Exam(s) XR HUMERUS RT EXAM: XR HUMERUS RT CLINICAL HISTORY: contrast extravasation. TECHNIQUE: 2D digital imaging was performed. COMPARISON: No exams were available for comparison FINDINGS: Two views These images reveal a significant amount of extravasation of intravenous contrast into the soft tissues on the lateral aspect of the right upper extremity. Ipsilateral humerus appears unremarkable. IMPRESSION: Significant extravasation of contrast into the soft tissues of the upper right arm. DATA REPOSITORY: RADIATION DOSE DELIVERED:
--- NOTE | 2025-01-16 11:44 | NUR.NOTE ---
Nursing Note:Upon patient arrival, EMS reports that IV in place is patent and was flushed. While patient in CT, IV site infiltrated, IV immediately removed and heating pack applied, notified.
[2025-01-16 11:46] LABS: Abs Immature Grans 0.01 10^3/uL (0.0-0.06); HCT 44.1 % (40.0-50.0); HGB 14.9 g/dL (13.5-17.5); Immature Grans % 0.3 %; MCH 28.8 pg (27.0-33.0); MCHC 33.8 % (32.0-36.0); MCV 85 fL (80-95); MPV 10.3 fL (8.0-11.0); Platelet Count 211 10^3/uL (130-400); RBC 5.17 10^6/uL (4.36-5.78); RDW 11.9 % (11.8-14.1); RDW-SD 37.2 fL; WBC 3.86 10^3/uL (4.4-10.8)
--- NOTE | 2025-01-16 12:00 | DI.MRI_ITS ---
Exam(s) MR BRAIN WO EXAM: MR BRAIN WO CLINICAL HISTORY: Right upper extremity weakness TECHNIQUE: Multiplanar multisequence MRI of the brain was performed. COMPARISON: CT CT BRAIN NECK CTA from 01/16/2025 FINDINGS: VENTRICLES AND EXTRA AXIAL SPACES: Normal in size and morphology for the patient's age. MIDLINE SHIFT: None. CEREBRAL PARENCHYMA: No focus of restricted diffusion to suggest acute infarct. No space-occupying lesion identified. No significant atrophy. No significant foci of high signal in the white matter. BRAINSTEM/CEREBELLUM: Normal. VISUALIZED PARANASAL SINUSES: Small mucous retention cysts in the sphenoid sinuses. MASTOIDS:Clear. Vasculature: Normal flow void. PITUITARY GLAND: Unremarkable. ORBITS: Unremarkable. IMPRESSION: Unremarkable MRI of the brain. DATA REPOSITORY:
[2025-01-16 12:06] LABS: ALT 30 U/L (16-63); AST 33 U/L (15-37); Albumin 3.4 g/dL (3.4-5.0); Alkaline Phosphatase 68 U/L (46-116); Anion Gap 8.8 mmol/L (3-11); BUN 17 mg/dL (7-18); Bilirubin, Total 0.9 mg/dL (0.2-1.0); CO2 26.2 mmol/L (21.0-32.0); Calcium 8.6 mg/dL (8.5-10.1); Chloride 106 mmol/L (98-107); Estimated GFR 99.44 (mL/min/1.73m2); Glucose 97 mg/dL (74-106); Potassium 4.6 mmol/L (3.5-5.1); Sodium 141 mmol/L (136-145); Total Protein 6.5 g/dL (6.4-8.2); Troponin I 4 ng/L (<or=76)
[2025-01-16] MEDS: Aspirin 81 MG CHEW 324 MG CH (12:16)
[2025-01-16 12:30] LABS: INR 1.1 (0.9-1.1); PTT Activated 25.3 sec (20.6-30.2); Prothrombin Time 10.6 sec (9.1-11.1)
[2025-01-16 13:07] LABS: Troponin I 6 ng/L (<or=76)
--- NOTE | 2025-01-16 15:09 | W.PM.HP.N ---
Date of service: 01/16/25 Time of Service: 15:09 Assessment and Plan Assessment and plan (1) TIA (transient ischemic attack): Status: Acute Assessment and plan: - Patient initially presented to the hospital with right upper and lower extremity weakness which mostly resolves upon presenting to the emergency department, and completely resolved shortly thereafter - CT head and neck with contrast ordered but dye extravasated, and no acute findings were seen - MRI also without acute findings - Patient will be admitted under observation status placed on telemetry overnight - Follow-up a.m. echocardiogram - Started 80 mg Lipitor (2) Extravasation of radio-opaque contrast media: Status: Acute Assessment and plan: - As noted above - Will monitor for increasing pain and assess if worsening for potential compartment syndrome History of Present Illness History of Present Illness Chief Complaint: Right upper and lower extremity weakness Narrative: 64-year-old male with no significant past medical history presents to the emergency department with complaints of right hand and right lower extremity weakness. 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 He denied any facial asymmetry or speech difficulties. He also denied any dizziness, lightheadedness, headache, imbalance, nausea vomiting or diarrhea. In the emergency department patient was noted as having mild decrease strength in right upper extremity as compared to left upper extremity with normal sensation and strength in bilateral lower extremities. Vital signs were within normal limits as well as CBC and CMP. Patient had ordered CT with contrast however contrast extravasated in his right upper extremity was unable to get hyaluronidase due to bee venom protein allergy causing anaphylaxis. Case was discussed with teleneurology who recommended MRI which was not without any acute findings, the recommendation was to admit the patient overnight for telemetry and echocardiogram. At which time emergency room provider paged hospitalist for admission for patient with suspected TIA. Review of Systems All systems reviewed & are unremarkable except as noted in HPI and below PFSH All Active Problems (Updated 01/16/25 @ 15:09 by Joseph Solo MD) TIA (transient ischemic attack) (Acute) Extravasation of radio-opaque contrast media (Acute) Transient right leg weakness (Acute) Difficulty gripping (Acute) Allergic reaction to bee sting (Acute) Elevated TSH (Acute) Prostate cancer (Chronic) Urology [facility] Screening for malignant neoplasm of colon performed (Acute) Trapezius muscle spasm (Acute) Low back pain (Acute) Scapulothoracic bursitis of left shoulder (Acute) Dr. Bryant at pain medicine Muscle pain, cervical (Acute) Occipital neuralgia of left side (Acute) Cervical dystonia (Acute) Elevated blood pressure reading (Acute) Degenerative disk disease (Acute) Lumbar region Medical History (Updated 01/16/25 @ 15:09 by Joseph Solo MD) Elevated PSA, less than 10 ng/ml Elevated PSA Postsurgical retinal scar of both eyes Surgical History Hx of colonoscopy (~12/2023) Hx of tonsillectomy S/P cataract surgery S/P MCL repair History of lumbar laminectomy Family History Mother , 87 Breast cancer Liver cancer Father Throat cancer Diabetes Heart disease Sister No problems noted. Sister No problems noted. Sister No problems noted. Brother No problems noted. Maternal Grandfather , 92 No problems noted. Maternal Grandmother , 92 No problems noted. Social History Smoking/Tobacco Use Status: Never Second Hand Exposure: Yes Smoking risk assessment performed?: Yes Alcohol Intake: current Alcohol Intake frequency: a few times a week Alcohol type: beer and wine Drug use: Daily Substance use type: marijuana Details: alcohol: t-2. Marijuana: t-3, hit Caregiver/Support person: No Household members: spouse Housing: house Communication Needs: None Do you need help understanding health information?: Rarely Pets and animals: No Sexually active: No Do you think of yourself as: straight/heterosexual Current gender identity: male What is your relationship status?: How often do you talk on the phone with friends or family?: twice per week How often do you get together with friends or relatives?: three or more times per week How often do you attend zoroastrian or scientologist services?: decline to answer Panel score (0-1 are the most socially isolated patients): 2 What type of physical activity do you participate in: walking and bicycling Duration: 60-90 minutes/day Frequency: 1-2 times per week Melanie/Anabaptism: No preference Special melanie needs: No Seatbelt use: always Drive intox or ride w/intox dedicated intermodal truck driver: No Do you feel safe at home: Yes Do you feel safe in your relationship?: Yes Meds Allergies and Home Medications Allergies Allergy/AdvReac Type Severity Reaction Status Date / Time bee venom protein (honey bee) Allergy Severe Anaphylaxis Verified 01/16/25 09:57 Home Medications ?Medication ?Instructions ?Recorded ?Confirmed ?Type multivitamin (Daily Multi-Vitamin 1 tab PO DAILY 02/26/21 01/16/25 History tablet) epinephrine 0.3 mg/0.3 mL 0.3 mg (0.3 mL) IM Q5-15M PRN 02/08/24 01/16/25 Rx injection, auto-injector hypersensitivity reaction #2 ea omega-3 fatty acids 1,000 mg 2,000 mg PO DAILY 10/16/24 01/16/25 History capsule (Fish Oil Concentrate) omeprazole 20 mg capsule,delayed 20 mg PO DAILY #90 caps 12/16/24 01/16/25 Rx release epinephrine 0.3 mg/0.3 mL 0.3 mg (0.3 mL) IM Q5-15M PRN 01/07/25 01/16/25 Rx injection, auto-injector (EpiPen anaphylaxis #2 ea 2-Arsen) Exam Narrative Exam Narrative: Well-appearing gentleman laying in bed in no acute distress, ANO x 4, heart regular rhythm, lungs good auscultation bilaterally, abdomen soft, nontender, nondistended, cranial nerves II through XII intact with normal sensation and strength in bilateral upper and lower extremities Results Labs 01/16/25 11:26 01/16/25 11:26 Labs: Laboratory Results - last 24 hr 01/16/25 01/16/25 01/16/25 11:26 11:40 12:10 WBC 3.86 L RBC 5.17 Hgb 14.9 Hct 44.1 MCV 85 MCH 28.8 MCHC 33.8 RDW 11.9 Plt Count 211 MPV 10.3 Immature Gran % 0.3 Neutrophils % 54.8 Lymphocytes % 30.3 Monocytes % 12.7 Eosinophils % 1.6 Basophils % 0.3 Nucleated RBC % 0.0 Absolute Neutrophils 2.12 Absolute Lymphocytes 1.17 L Absolute Monocytes 0.49 Absolute Eosinophils 0.06 Absolute Basophils 0.01 PT Cancelled 10.6 INR Cancelled 1.1 APTT Cancelled 25.3 Sodium 141 Potassium 4.6 Chloride 106 Carbon Dioxide 26.2 Anion Gap 8.8 BUN 17 Creatinine 0.8 Est GFR (CKD-EPI 2020) 99.44 Glucose 97 Calcium 8.6 Total Bilirubin 0.9 AST 33 ALT 30 Alkaline Phosphatase 68 Troponin I 4 Total Protein 6.5 Albumin 3.4 ABO/Rh Cancelled B Negative Antibody Screen Cancelled NEGATIVE 01/16/25 01/16/25 12:20 13:37 WBC RBC Hgb Hct MCV MCH MCHC RDW Plt Count MPV Immature Gran % Neutrophils % Lymphocytes % Monocytes % Eosinophils % Basophils % Nucleated RBC % Absolute Neutrophils Absolute Lymphocytes Absolute Monocytes Absolute Eosinophils Absolute Basophils PT INR APTT Sodium Potassium Chloride Carbon Dioxide Anion Gap BUN Creatinine Est GFR (CKD-EPI 2020) Glucose Calcium Total Bilirubin AST ALT Alkaline Phosphatase Troponin I 6 Cancelled Total Protein Albumin ABO/Rh Antibody Screen Last Vital Signs Temp 97.6 F 01/16/25 10:45 Pulse 65 01/16/25 14:50 Resp 13 01/16/25 14:50 BP 169/85 H 01/16/25 14:31 Pulse Ox 98 01/16/25 14:50 Time Spent Time spent with Patient: >75 minutes Time was spent: preparing to see the patient(eg.review tests), obtaining and/or reviewing separately otained hiistory, ordering medications,tests, procedures, referring, communicating with other health care transition manager, indepentently interpreting results, counseling the patient and care coordination
--- NOTE | 2025-01-16 16:21 | W.PC.ACHO ---
Registration Status: REG ER Primary Language: Preferred Language: ED Information & Data Chief Complaint CVA/TIA 01/16/25 11:26 Chief Complaint CVA/TIA 01/16/25 10:45 Triage Note Pt arrived via EMS for 01/16/25 10:45 stroke symptoms, Pt. noticed sudden R sided weakness at 7:30AM post exercise. 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 Pt. A+O x4. Medical / Surgical History (Updated 01/16/25 @ 15:09 by Joseph Solo MD) Elevated PSA, less than 10 ng/ml Elevated PSA Postsurgical retinal scar of both eyes (Updated 01/22/24 @ 08:33 by Tamika Mota) Hx of colonoscopy (~12/2023) Hx of tonsillectomy S/P cataract surgery S/P MCL repair History of lumbar laminectomy Most Recent Vital Signs Temperature 36.4 C 01/16/25 10:45 Temperature Source Tympanic 01/16/25 10:45 Pulse 66 01/16/25 15:40 Pulse 66 01/16/25 15:40 Respiratory Rate 19 01/16/25 15:40 Respiratory Effort Normal 01/16/25 11:26 Blood Pressure 163/86 H 01/16/25 15:31 Blood Pressure Mean 112 01/16/25 15:31 Blood Pressure Position Supine 01/16/25 10:45 Pulse Oximetry 98 01/16/25 15:40 Oxygen Delivery Method Room Air 01/16/25 10:45 Oxygen Flow Rate 0 01/16/25 10:45 End Tidal Co2 0 01/16/25 10:45 Allergies bee venom protein (honey bee) Allergy (Severe, Verified 01/16/25 09:57) Anaphylaxis Precautions Isolation Standard precaution 01/16/25 11:26 Active Medications Generic Name Dose Route Start Last Admin Trade Name Freq PRN Reason Stop Dose Admin Iohexol 100 ml 01/16/25 11:00 01/16/25 10:51 Omnipaque 350 Mg/Ml 100 Ml Btl IJ 02/15/25 23:59 70 ml DIRECTED ALAN Administration Iohexol 100 ml 01/16/25 11:15 01/16/25 11:10 Omnipaque 350 Mg/Ml 100 Ml Btl IJ 02/15/25 23:59 70 ml DIRECTED ALAN Administration Sodium Chloride 0 ml 01/16/25 10:49 01/16/25 10:52 Normal Saline Flush 10 Ml Syr IVP 10 ml PRN PRN Administration Sodium Chloride 50 ml 01/16/25 11:00 01/16/25 10:51 Normal Saline - Diluent 50 Ml Vial IJ 50 ml DIRECTED ALAN Administration Sodium Chloride 0 ml 01/16/25 11:06 01/16/25 11:14 Normal Saline Flush 10 Ml Syr IVP 10 ml PRN PRN Administration Sodium Chloride 50 ml 01/16/25 11:15 01/16/25 11:09 Normal Saline - Diluent 50 Ml Vial IJ 50 ml DIRECTED ALAN Administration IV IV Catheter Type [Left Upper Saline Lock arm] IV Catheter Type [Left Saline Lock Antecubital] IV Catheter Gauge [Left Upper 20 arm] IV Catheter Gauge [Left 18 Antecubital] Diagnostics 01/16/25 01/16/25 01/16/25 Range/Units 13:37 12:20 12:10 WBC (4.4-10.8) 10^3/uL RBC (4.36-5.78) 10^6/uL Hgb (13.5-17.5) g/dL Hct (40.0-50.0) % MCV (80-95) fL MCH (27.0-33.0) pg MCHC (32.0-36.0) % RDW (11.8-14.1) % Plt Count (130-400) 10^3/uL MPV (8.0-11.0) fL Immature Gran % % Neutrophils % % Lymphocytes % % Monocytes % % Eosinophils % % Basophils % % Nucleated RBC % (0.0-0.3) % Absolute Neutrophils (1.2-6.7) 10^3/uL Absolute Lymphocytes (1.2-3.4) 10^3/uL Absolute Monocytes (0.1-0.8) 10^3/uL Absolute Eosinophils (0.0-0.7) 10^3/uL Absolute Basophils (0.0-0.2) 10^3/uL PT 10.6 INR 1.1 APTT 25.3 Sodium (136-145) mmol/L Potassium (3.5-5.1) mmol/L Chloride (98-107) mmol/L Carbon Dioxide (21.0-32.0) mmol/L Anion Gap (3-11) mmol/L BUN (7-18) mg/dL Creatinine (0.70-1.30) mg/dL Est GFR (CKD-EPI 2020) (mL/min/1.73m2) Glucose (74-106) mg/dL Calcium (8.5-10.1) mg/dL Total Bilirubin (0.2-1.0) mg/dL AST (15-37) U/L ALT (16-63) U/L Alkaline Phosphatase (46-116) U/L Troponin I Cancelled 6 (<or=76) ng/L Total Protein (6.4-8.2) g/dL Albumin (3.4-5.0) g/dL ABO/Rh B Negative Antibody Screen NEGATIVE 01/16/25 01/16/25 Range/Units 11:40 11:26 WBC 3.86 L (4.4-10.8) 10^3/uL RBC 5.17 (4.36-5.78) 10^6/uL Hgb 14.9 (13.5-17.5) g/dL Hct 44.1 (40.0-50.0) % MCV 85 (80-95) fL MCH 28.8 (27.0-33.0) pg MCHC 33.8 (32.0-36.0) % RDW 11.9 (11.8-14.1) % Plt Count 211 (130-400) 10^3/uL MPV 10.3 (8.0-11.0) fL Immature Gran % 0.3 % Neutrophils % 54.8 % Lymphocytes % 30.3 % Monocytes % 12.7 % Eosinophils % 1.6 % Basophils % 0.3 % Nucleated RBC % 0.0 (0.0-0.3) % Absolute Neutrophils 2.12 (1.2-6.7) 10^3/uL Absolute Lymphocytes 1.17 L (1.2-3.4) 10^3/uL Absolute Monocytes 0.49 (0.1-0.8) 10^3/uL Absolute Eosinophils 0.06 (0.0-0.7) 10^3/uL Absolute Basophils 0.01 (0.0-0.2) 10^3/uL PT Cancelled INR Cancelled APTT Cancelled Sodium 141 (136-145) mmol/L Potassium 4.6 (3.5-5.1) mmol/L Chloride 106 (98-107) mmol/L Carbon Dioxide 26.2 (21.0-32.0) mmol/L Anion Gap 8.8 (3-11) mmol/L BUN 17 (7-18) mg/dL Creatinine 0.8 (0.70-1.30) mg/dL Est GFR (CKD-EPI 2020) 99.44 (mL/min/1.73m2) Glucose 97 (74-106) mg/dL Calcium 8.6 (8.5-10.1) mg/dL Total Bilirubin 0.9 (0.2-1.0) mg/dL AST 33 (15-37) U/L ALT 30 (16-63) U/L Alkaline Phosphatase 68 (46-116) U/L Troponin I 4 (<or=76) ng/L Total Protein 6.5 (6.4-8.2) g/dL Albumin 3.4 (3.4-5.0) g/dL ABO/Rh Cancelled Antibody Screen Cancelled Intake and Output - 24 Hour Total 01/16/25 10:30 thru 01/16/25 10:45 Weight 92.9 kg Falls Risk Assessment History of Falls No History 01/16/25 11:45 Contributing Factors Unstable 01/16/25 11:45 Ambulatory Aids Independent 01/16/25 11:45 Tubes/Lines None 01/16/25 11:45 Gait Evaluation W/any additional score 01/16/25 11:45 Cognition No cognitive impairment 01/16/25 11:45 Fall Total Score 23 01/16/25 11:45 Level of Risk Standard/Low Risk 01/16/25 11:45 Problems (Updated 01/16/25 @ 15:09 by Joseph Solo MD) TIA (transient ischemic attack) (Acute) Extravasation of radio-opaque contrast media (Acute) Transient right leg weakness (Acute) Difficulty gripping (Acute) Notes 01/16/25 11:44 Nursing Notes by Martine Chandra Nursing Note:Upon patient arrival, EMS reports that IV in place is patent and was flushed. While patient in CT, IV site infiltrated, IV immediately removed and heating pack applied, notified. Initialized on 01/16/25 11:44 - END OF NOTE v v v v v v v v v Sending and/or Receiving Nurses: Please use comment section below to note any information pertinent to the patient hand-off not included above. Information / Comments: ED nursing report given by Martine NAVA @16:13. Report received from:
[2025-01-16] MEDS: Atorvastatin 40 MG TAB 80 MG PO (20:05)
[2025-01-17 05:19] VITALS: BP 163/88; PULSE 59; RESP 12; TEMP 36.2; O2SAT 98
[2025-01-17 06:53] LABS: HCT 46.4 % (40.0-50.0); HGB 15.7 g/dL (13.5-17.5); MCH 29.0 pg (27.0-33.0); MCHC 33.8 % (32.0-36.0); MCV 86 fL (80-95); MPV 10.4 fL (8.0-11.0); Platelet Count 206 10^3/uL (130-400); RBC 5.42 10^6/uL (4.36-5.78); RDW 12.0 % (11.8-14.1); RDW-SD 37.5 fL; WBC 4.08 10^3/uL (4.4-10.8)
[2025-01-17 07:01] LABS: Anion Gap 6.9 mmol/L (3-11); BUN 20 mg/dL (7-18); CO2 29.1 mmol/L (21.0-32.0); Calcium 8.5 mg/dL (8.5-10.1); Chloride 105 mmol/L (98-107); Estimated GFR 99.44 (mL/min/1.73m2); Glucose 109 mg/dL (74-106); Magnesium 2.4 mg/dL (1.8-2.4); Potassium 3.9 mmol/L (3.5-5.1); Sodium 141 mmol/L (136-145)
[2025-01-17 07:18] LABS: Calculated LDL 147 mg/dL (<100); Cholesterol 208 mg/dL (<200); HDL Cholesterol 43 mg/dL (>or=40); Triglyceride 92 mg/dL (<150)
[2025-01-17 07:34] VITALS: BP 154/85; PULSE 54; RESP 16; TEMP 36.2; O2SAT 98
[2025-01-17] MEDS: Omeprazole 20 MG CAPCR PO (09:16)
[2025-01-17 11:10] VITALS: BP 140/82; PULSE 58; RESP 18; TEMP 36.1; O2SAT 98
--- NOTE | 2025-01-17 11:30 | DI.US_ITS ---
APPROVED REPORT EXAM: Comprehensive 2D, Doppler, and color-flow Echocardiogram Patient Location: In-Patient Room/Bed: [address] Territory Manager: Jason Sandhu RDCS (AE) Indications: TIA Echo Enhancing Agent Indication: Rule out Shunt Agent(s) / Amount(s) Used: Agitated Saline 30.0 cc Comments: Contrast study was performed with 3 IV injections of 10ccs of agitated normal saline, at rest, with cough and post valsalva maneuver. Negative contrast study for shunt flow. Other Information Study Quality: Adequate Conclusion Normal left ventricular wall thickness and chamber size. Ejection fraction is 55 to 60%. Wall motion is normal Normal right ventricular size and function Both atria are normal in size No intracardiac shunting is demonstrated with injection of agitated saline There is no structural or hemodynamically significant valvular disease Wall motion Left Ventricle The left ventricle is normal size. The left ventricular systolic function is normal. The left ventricular ejection fraction is within the normal range. There is normal left ventricular wall thickness. There is normal LV segmental wall motion. There is no ventricular septal defect visualized. LVEF is 55-60%. Right Ventricle The right ventricle is normal size. The right ventricular systolic function is normal. Atria The left atrium size is normal. The right atrium size is normal. Saline bubble contrast intravenous injection does not demonstrate PFO. Aortic Valve The aortic valve is normal in structure. Aortic valve is trileaflet. There is no aortic valvular stenosis. No aortic regurgitation is present. Mitral Valve The mitral valve is normal in structure. No evidence of mitral valve stenosis. There is no mitral valve regurgitation noted. Tricuspid Valve The tricuspid valve is normal in structure. There is no tricuspid valve stenosis. Mild tricuspid regurgitation. The RVSP is 35.6 mmHg. Pulmonic Valve The pulmonary valve is normal in structure. There is no pulmonic valvular stenosis. There is no pulmonic valvular regurgitation. Great Vessels The aortic root is normal in size. Ascending aorta is not well visualized. Aortic arch is normal in caliber. IVC is normal in size and collapses >50% with inspiration. Pericardium There is no pericardial effusion. 2D Dimensions IVSD d PLAX 0.84 cm M: 0.6-1.2 Ao Root d 3.61 cm M: 3.1 - 3.7 LVPW d PLAX 0.80 cm M: 0.6 - 1.2 LVID d PLAX 4.73 cm M: 4.2 - 5.8 LVDs 3.04 cm M: 2.5 - 4.0 LV EF Teichholz 65.2 % FS 35.73 % LV EDV (Teich) 103.8 mL LV ESV (Teich) 36.1 mL Stroke Vol Index (Teich) 31.78 M-Mode TAPSE 2.54 cm (M/F) >1.7 Auto EF LV EDV A4C 89.3 mL LV EDV A2C 112.1 mL LV EDV BP 99.3 mL LV ESV A4C 35.6 mL LV ESV A2C 45.1 mL LV ESV BP 39.3 mL LVEF(%) A4C 60.1 % LVEF(%) A2C 59.8 % LVEF(%) BP 60.4 % LV SV A4C 53.6 ml LV SV A2C 67.0 ml LV SV BP 60.0 ml LV CO A4C 3.1 L/min LV CO A2C 3.7 L/min LV CO BP 3.4 L/min HR A4C 57.49 BPM HR A2C 54.63 BPM LV EDV Index (BP) LA Volume LA Length A4C 4.1 cm LA Length A2C 4.0 cm LA Area A4C s 10.48 cm2 LA Area A2C s 11.70 cm2 LA Vol A4C A-L 22.97 mL LA Vol A2C A-L 28.92 mL LA Vol Biplane A-L 25.9 mL LA Vol/BSA A4C A-L LA Vol/BSA A2C A-L LA Vol/BSA BP A-L 12.2 mL/m2 LA Vol A4C MOD 22.0 mL LA Vol A2C MOD 25.0 mL LA Vol BP MOD 23.3 mL RA Volume RA Area A4C 12.4 cm2 RA ESV A4C (A-L) 27.6mL RA Vol/BSA A4C A-L RA Length A4C 4.7 cm RA ESV A4C (MOD) 25.1mL LV Diastology MV E' medial 0.103 (>0.07 m/s) MV E Vmax 0.48 (0.4-1.3 m/s) MV E/E' MED 4.62 (<14) MV A Vmax 0.55 (0.4-1.3 m/s) MV E' lateral 0.103 (>0.1 m/s) E/A Ratio 0.9 MV E/E' LAT 4.62 (<14) MV E' Average 0.103 m/s MV E/E'(average) 4.62 Aortic Valve AoV Vmax 1.01 m/s LVOT Vmax 0.83 m/s AoV Peak Grad 4.1 mmHg LVOT Peak Grad 2.8 mmHg AoV Area (Vmax) 2.88 cm2 LVOT VTI 0.195 m AoV VTI 0.242 m LVOT Mean Grad 1.6 mmHg AoV Mean Dale. 0.71 m/s LVOT SV 68.60 mL AoV Mean Grad 2.3 mmHg LVOT Diam s 2.10 cm AoV Area (VTI) 2.84 cm2 AV Regurg Peak Gr. 4.11 mmHg Velocity Ratio 0.82 Mitral Valve MV DT 226 (160-240 msec) Pulmonary Valve PV Vmax 0.89 (0.5-1.5 m/s) RVOT Vmax 0.99 m/s PV Peak Grad 3.2 mmHg RVOT Peak Gr. 4.0 mmHg PV Mean Dale 0.62 m/s RVOT VTI 0.199 m PV Mean Grad 1.8 mmHg RVOT Mean Gr. 1.8 mmHg Tricuspid Valve RA Pressure 3.00 mmHg TR Vmax 2.86 m/s TR Peak Grad 32.6 mmHg RVSP (TR) 35.6 mmHg
--- NOTE | 2025-01-17 12:39 | DSE_ITS ---
Date of service: 01/17/25 Time of Service: 12:39 DS: Diagnosis Discharge Diagnosis (1) TIA (transient ischemic attack): Status: Acute (2) Extravasation of radio-opaque contrast media: Status: Acute Discharge Plan Disposition Patient Disposition: Home Condition: Good Discharge Details Reason For Visit: TIA Admit Date/Time: 01/16/25 15:09 Admit Provider: Joseph Solo Attending Provider: Joseph Solo Primary Care Provider: Ric Gordon Hospital Course Hospital Course: Patient initially presented with signs and symptoms of right upper and lower extremity weakness concerning for CVA. However, upon arrival to the emergency department symptoms improved and shortly after arrival completely resolved. The only residual deficit upon arrival to the emergency department was retail pos specialist strength which again improved. Patient had CT angio ordered but dye had not extravasated but was still able to obtain a good enough image that no acute findings were noted. Additionally, patient also had MRI that did not show any acute findings. Patient was monitored on telemetry overnight without any signs of arrhythmia, and had an echocardiogram in the morning of 01/17/2025 does not show any wall motion abnormalities, valvular issues or PFO. Patient was started on high-dose statin and is recommended discontinued until he discusses with his PCP and/or neurology. Ultimately, it was determined that the patient was stable for discharge home. Home Meds and New Rx's Prescriptions: New atorvastatin 40 mg Tablet 80 mg PO QPM Qty: 90 0RF Continued omega-3 fatty acids [Fish Oil Concentrate] 1,000 mg capsule 2,000 mg PO DAILY epinephrine 0.3 mg/0.3 mL auto-injector 0.3 mg IM Q5-15M PRN (Reason: hypersensitivity reaction) Qty: 2 1RF Rx Instructions: do not exceed 3 doses per episode omeprazole 20 mg capsule,delayed release(DR/EC) 20 mg PO DAILY Qty: 90 0RF epinephrine [EpiPen 2-Arsen] 0.3 mg/0.3 mL auto-injector 0.3 mg IM Q5-15M PRN (Reason: anaphylaxis) Qty: 2 0RF Rx Instructions: do not exceed 3 doses per episode Discontinued multivitamin [Daily Multi-Vitamin] Tablet 1 tab PO DAILY Discharge Instructions Activity:: Activity as Tolerated Equipment/Supplies:: No Equipment Needed Diet:: As Tolerated Discharge Orders Discharge Orders: Discharge Order (Routine); Ordered 01/17/25 Ordered By: Joseph Solo DS: Summary Time Spent with Patient providing and/or coordinating discharge services: Greater than 30 minutes Status at Discharge Functional status at discharge: independent ambulation Overall status at discharge: patient is back to baseline Mental Status: mental status grossly normal Speech and Movement: speech and movement normal Mood: congruent mood Affect: normal affect Exam Narrative Exam Narrative: Well-appearing gentleman laying in bed in no acute distress, ANO x 4, heart regular rhythm, lungs good auscultation bilaterally, abdomen soft, nontender, nondistended, cranial nerves II through XII intact with normal sensation and strength in bilateral upper and lower extremities Psych Mental Status: mental status grossly normal Speech and Movement: speech and movement normal Mood: congruent mood Affect: normal affect DS: Data Vitals/I&O Vitals and I&O: Vital Signs Temperature 97.0 F L 01/17/25 11:10 Temperature Source Temporal Artery Scan 01/17/25 07:34 Pulse 58 L 01/17/25 11:10 Pulse 66 01/16/25 15:40 Respiratory Rate 18 01/17/25 11:10 Respiratory Effort Normal 01/16/25 16:42 Respiratory Depth Normal 01/16/25 16:42 Respiratory Pattern Normal 01/16/25 16:42 Blood Pressure 140/82 01/17/25 11:10 Blood Pressure Mean 101 01/17/25 11:10 Blood Pressure Position Supine 01/16/25 10:45 Pulse Oximetry 98 01/17/25 11:10 Oxygen Delivery Method Room Air 01/17/25 11:10 Oxygen Flow Rate 0 01/17/25 11:10 End Tidal Co2 0 01/16/25 10:45 Pain Level 0 01/17/25 11:10 Comment Pt asleep att. 01/17/25 00:56 Intake & Output 01/16/25 01/17/25 01/17/25 17:59 05:59 17:59 Intake Total 450 / 450 240 / 240 Balance 450 / 450 240 / 240 Weight 187 lb Intake: IV Oral 440 / 440 240 / 240 Data Completed and Pending Labs on day of discharge: Labs from last 24 hours 01/17/25 01/16/25 01/16/25 06:00 12:20 12:10 WBC 4.08 L RBC 5.42 Hgb 15.7 Hct 46.4 MCV 86 MCH 29.0 MCHC 33.8 RDW 12.0 Plt Count 206 MPV 10.4 Sodium 141 Potassium 3.9 Chloride 105 Carbon Dioxide 29.1 Anion Gap 6.9 BUN 20 H Creatinine 0.8 Est GFR (CKD-EPI 2020) 99.44 Glucose 109 H Calcium 8.5 Magnesium 2.4 Troponin I 6 Triglycerides 92 Total Cholesterol 208 H LDL Cholesterol, Calc 147 H HDL Cholesterol 43 ABO/Rh B Negative Antibody Screen NEGATIVE PFSH All Active Problems (Updated 01/16/25 @ 15:09 by Joseph Solo MD) TIA (transient ischemic attack) (Acute) Extravasation of radio-opaque contrast media (Acute) Transient right leg weakness (Acute) Difficulty gripping (Acute) Allergic reaction to bee sting (Acute) Elevated TSH (Acute) Prostate cancer (Chronic) [facility] Screening for malignant neoplasm of colon performed (Acute) Trapezius muscle spasm (Acute) Low back pain (Acute) Scapulothoracic bursitis of left shoulder (Acute) Dr. Bryant at pain medicine Muscle pain, cervical (Acute) Occipital neuralgia of left side (Acute) Cervical dystonia (Acute) Elevated blood pressure reading (Acute) Degenerative disk disease (Acute) Lumbar region Medical History (Updated 01/16/25 @ 15:09 by Joseph Solo MD) Elevated PSA, less than 10 ng/ml Elevated PSA Postsurgical retinal scar of both eyes Surgical History Hx of colonoscopy (~12/2023) Hx of tonsillectomy S/P cataract surgery S/P MCL repair History of lumbar laminectomy Family History Mother , 87 Breast cancer Liver cancer Father Throat cancer Diabetes Heart disease Sister No problems noted. Sister No problems noted. Sister No problems noted. Brother No problems noted. Maternal Grandfather , 92 No problems noted. Maternal Grandmother , 92 No problems noted. Social History Smoking/Tobacco Use Status: Never Second Hand Exposure: Yes Smoking risk assessment performed?: Yes Alcohol Intake: current Alcohol Intake frequency: a few times a week Alcohol type: beer and wine Drug use: Daily Substance use type: marijuana Details: alcohol: t-2. Marijuana: t-3, hit Caregiver/Support person: No Household members: spouse Housing: house Communication Needs: None Do you need help understanding health information?: Rarely Pets and animals: No Sexually active: No Do you think of yourself as: straight/heterosexual Current gender identity: male What is your relationship status?: How often do you talk on the phone with friends or family?: twice per week How often do you get together with friends or relatives?: three or more times per week How often do you attend protestant or synagogue services?: decline to answer Panel score (0-1 are the most socially isolated patients): 2 What type of physical activity do you participate in: walking and bicycling Duration: 60-90 minutes/day Frequency: 1-2 times per week Melanie/Spiritism: No preference Special melanie needs: No Seatbelt use: always Drive intox or ride w/intox set key driver: No Do you feel safe at home: Yes Do you feel safe in your relationship?: Yes Time Spent with Patient Time Spent with Patient: <45 minutes Time was spent: preparing to see the patient(eg.review tests), obtaining and/or reviewing separately otained hiistory, ordering medications,tests, procedures, referring, communicating with other health medicare nurse, indepentently interpreting results, counseling the patient and care coordination
--- NOTE | 2025-01-17 16:11 | PDOC.CMPRO ---
Date of service: 01/17/25 Time of Service: 14:00 Care Management Progress Note Progress Note Text Progress Note Text: Lyndon presented to the ED yesterday morning with c/o difficulty gripping and transient right leg weakness. He was admitted to observation for TIA workup per the recommendation of tele-neuro. He had a brain MRI that was reassuring, and was kept over night for echo this morning. Lyndon was discharged home with no new services before CM could meet with him. Discharge Potential Discharge Needs: PCP F/U Appt and Other (neuro referral sent) Anticipated Barriers to Discharge: None Identified Patient/Family Education Needs: Review discharge instructions, discuss Ask Me Three Transportation: Private vehicle Plan: Lyndon was discharged home with no new services this afternoon after his echocardiogram, which showed no abnormalities. He will f/u with his PCP and with neurology and continue per his plan of care. He transported home with family. Social Determinants of Health Screening Social Determinants of health last assessed in clinic: 01/17/25 Will the Patient Participate in the Screening?: Yes Do you worry about having a steady place to live?: no Problems where you live: no known problems In the past 12 months, have you had to go without electric, gas, oil or water in your home?: no 1. Within the past 12 months, we worried whether our food would run out before we got money to buy more.: Don't know/refused 2. Within the past 12 months, the food we bought just didn't last and we didn't have money to get more.: Don't know/refused Has lack of transportation kept you from medical appointments or from doing things needed for daily living?: no Has anyone in your life made you feel unsafe or unsupported?: no How hard is it for you to pay for the very basics like food, housing, medical care, and heating? Would you say it is:: Not hard at all Do you want help finding or keeping work or a job?: I do not need or want help If for any reason you need help with day-to-day activities such as bathing, preparing meals, shopping, managing finances, etc., do you get the help you need?: I don?t need any help How often do you feel lonely or isolated from those around you?: Never Do you speak a language other than [place] at home?: No Does the patient want assistance with any of the above?: No
== END 2025-01-17 13:45 | disposition home or self-care (01) ==
LOC: ER 15:17 → MS 16:34
PROVIDERS: Admitting Provider Family Medicine; Emergency Provider Emergency Medicine; PCP Nurse Practitioner Family; Responsible Provider Family Medicine; Visit Provider Family Medicine
DX: G45.9 Transient cerebral ischemic attack, unspecified (principal); T80.818A Extravasation of other vesicant agent, initial encounter; C61 Malignant neoplasm of prostate; M75.52 Bursitis of left shoulder; M54.81 Occipital neuralgia; G24.3 Spasmodic torticollis; M51.369 Other intervertebral disc degeneration, lumbar region without mention of lumbar back pain or lower extremity pain; Z79.899 Other long term (current) drug therapy
CPT/HCPCS: 00123; 36415; 70496; 70498; 80048; 80053; 80061; 85027; 86850; 86900; 86901; 93005; 99285; 70551; 71045; 73060; 83735; 84484; 85025; 85610; 85730; 93010; 93306; 99223; 99238; G0378; J3490

== ENCOUNTER 2025-02-07 03:32 | Outpatient (CLI) | payer BC, SELFPAY ==
[2025-02-07 08:39] LABS: Abs Immature Grans 0.00 10^3/uL (0.0-0.06); HCT 47.9 % (40.0-50.0); HGB 15.8 g/dL (13.5-17.5); Immature Grans % 0.0 %; MCH 28.5 pg (27.0-33.0); MCHC 33.0 % (32.0-36.0); MCV 86 fL (80-95); MPV 10.0 fL (8.0-11.0); Platelet Count 223 10^3/uL (130-400); RBC 5.55 10^6/uL (4.36-5.78); RDW 11.8 % (11.8-14.1); RDW-SD 37.6 fL; WBC 3.94 10^3/uL (4.4-10.8)
[2025-02-07 10:00] LABS: Ferritin 183 ng/mL (26-388); TSH (W/Ref FT4) 2.47 uIU/mL (0.36-3.74); Vitamin B12 524 pg/mL (193-986)
[2025-02-07 10:08] LABS: Iron 75 ug/dL (65-175); Total Iron Binding Capacity 339 ug/dL (250-450)
[2025-02-10 10:42] LABS: Transferrin 236 mg/dL (201-352)
[2025-02-16 01:28] LABS: Testosterone, Free 53.1 pg/mL (35.0-155.0)
== END 2025-02-07 03:33 | disposition home or self-care (01) ==
PROVIDERS: PCP Nurse Practitioner Family; Visit Provider Nurse Practitioner Family
DX: R23.1 Pallor (principal); R23.2 Flushing; R53.83 Other fatigue
CPT/HCPCS: 36415; 84402; 84403; 82607; 82728; 83540; 83550; 84443; 84466; 85025

== ENCOUNTER 2025-03-27 03:33 | Outpatient (CLI) | payer BC, SELFPAY | END 2025-03-27 03:34 | disposition home or self-care (01) | LOC: LBO 03:33 | PROVIDERS: PCP Nurse Practitioner Family; Visit Provider Urology | DX: C61 Malignant neoplasm of prostate (principal) | CPT/HCPCS: 36415; 84153 ==